=== PATIENT | male | born 1940 | race Caucasian/White ===

== ENCOUNTER 2017-05-02 13:45 | Inpatient (IN) ==
[2017-05-02] MEDS ORDERED: DILTIAZEM 50 MG/10 ML VIAL IV STA (14:13)
[2017-05-02] MEDS ORDERED: ENOXAPARIN 100 MG/ML SYRINGE SUBCUT STA (14:13)
--- NOTE | 2017-05-02 14:24 | Emergency Department Note ---
Paulino Polanco Brittany, am scribing for, and in the presence of, Zach Gilliam MD 14: 15. Tawana Polanco James D, MD, personally performed the services described in this documentation, ascribed by Margoth Bob in my presence, and it is both accurate and complete 424 . Arrival - Arrival Chief Complaint: Shortness of Breath Stated Complaint: chest pain, sob ED Nursing Triage Note: Sent from Dr Dominique office for new onset of a fib and SOB onset Saturday afternoon - pt denies chest pain Mode of Arrival: Wheelchair Limitations: No Limitations Source: Patient, Family - History of Present Illness HPI Narrative: This is a 76 y/o white male, who presents to the ED for further evaluation of acute A-fib and SOB whih started 4 days ago. He reports he has been SOB for the past. Pt denies chest pain. He denies pedal edema to the lower extremities, but upon examination, his BLE seems to be swollen mildly. He was being seen at Dr. Dominique's office for the SOB originally. Pt denies a PCP. Pt has no other complaints/pain in the ED at this time. Pt denies a PMHx. Pt denies a surgical Hx. Pt denies a family medical hx. Pt is a former smoker and quite drinking 8 years ago. Onset (ago): day(s) (Started 4 days ago) Consistency: constant Severity: moderate Allergies/Adverse Reactions: Allergies Allergy/AdvReac Type Severity Reaction Status Date / Time Penicillins Allergy RASH Verified 05/02/17 13:47 Home Medications: Home Medications Medication Instructions Recorded Confirmed Type Multivit-Min/FA/Lycopen/Lutein 1 each PO QAM 05/02/17 05/02/17 History [Centrum Silver Tablet] [place]-3/Dha/Epa/Fish Oil [Fish Oil 1 each PO QAM 05/02/17 05/02/17 History 1,000 mg Softgel] Potassium 99 mg PO QAM 05/02/17 05/02/17 History Review of System - Review of System 12 point system: reviewed and no additional remarkable complaints except as stated - Review of System Cardiovascular: Present: dyspnea on exertion, other (Acute onset of A-fib). Absent: chest pain Medical,Surgical,& Family Hx - Medical History Cardio: No history of: [place] - Social History Smoking Status: Never smoker Frequency of Alcohol Use: None Type of Drug Use: None Exam Vital Signs: Vital Signs Temperature 97.8 F 05/02/17 13:48 Pulse Rate 143 H 05/02/17 13:48 Respiratory Rate 20 05/02/17 13:48 O2 Sat by Pulse Oximetry 94 L 05/02/17 13:48 GENERAL: This is a well-nourished well-developed white male in no apparent distress. VITAL SIGNS: Reviewed HEENT: Head is atraumatic and normocephalic. Pupils are equal round react to light. Extraocular movements are intact. Oropharynx is benign with moist mucous membranes. NECK: Neck is soft and supple without tenderness. There are no masses. There is no lymphadenopathy. LUNGS: Lungs are clear to auscultation. Chest rises symmetrically. There is no chest wall tenderness. CV: Irregularly irregular with rapid rate without murmurs rubs or gallops. ABDOMEN: Abdomen is soft, nontender to palpation. There are no abdominal abnormal masses palpated. There is no organomegaly. Bowel sounds are present and active. SKIN: Skin is warm and dry. No rash. EXTREMITIES: Patient has full range of motion without tenderness. There is 1+ pedal edema. NEUROLOGIC: Awake alert and oriented 4. Cranial nerves II through XII are grossly intact. Motor is 5 over 5 in all extremities bilaterally. Deep tendon reflexes are 2+ and bilaterally equal. Results - Labs Lab Results: I have reviewed the patients labs - EKG EKG results: interpreted by ERMD - Impressions EKG: Atrial fib with RVR, rate 132, nonspecific ST-T wave changes, normal axis. - Diagnostic Findings Procedure: Chest x-ray: image reviewed by me Disposition Clinical Impression: Atrial fibrillation with RVR Case discussed with: patient Disposition: Still a Patient Condition: Stable Time of Disposition: 14:27
--- NOTE | 2017-05-02 14:33 | XRay Report ---
Exam: XR chest 1V portable Date: 05/02/2017 2:13 PM Indication: Shortness of breath Comparison: None Technical: AP portable Findings: Cardiomegaly present with oxygen tubing and external cardiac leads are present. Degenerative change present thoracic spine. The lung bases reveal some reticular nodular densities. Tiny low volume effusions present. Underlying cystic bronchiectasis change cannot be excluded. No pneumothorax Impression: 1. Cardiomegaly 2. Patchy interstitial densities in the lung bases bilaterally. Infiltrates or cystic bronchiectasis and effusion suspected. PROCEDURE INTERPRETED AT [facility] DEPARTMENT OF RADIOLOGY Final Report Signed by: Dr. Pop Rose
[2017-05-02 14:43] LABS: Basophils % 0.4 % (0.0-0.8); Eosinophils % 0.1 % (0.00-10.9); Hematocrit 40.2 VOL% (42.0-52.0); Hemoglobin 13.9 GM/DL (14.0-18.0); Immature Granulocytes % 0.4 %; Immature Granulocytes Absolute 0.03 #; Lymphocytes # 0.8 10*3/uL (1.4-4.0); Lymphocytes % 9.5 % (21.2-54.2); Mean Corpuscular HGB Conc 34.6 GM/DL (32-36); Mean Corpuscular Hemoglobin 29 PG (27-34); Mean Corpuscular Volume 82.9 FL (87-102); Mean Platelet Volume 9.4 FL (9.6-12.0); Monocytes # 0.8 10*3/uL (0.11-0.8); Monocytes % 9.6 % (1.7-12.7); Neutrophils # 6.4 10*3/uL (1.4-7.4); Platelet Count 258 T/CUMM (130-400); Red Blood Count 4.85 MC/CUMM (3.8-5.5); Red Cell Distribution Width 13.5 % (9.3-17.3)
--- NOTE | 2017-05-02 14:45 | EKG Report ---
Stationary ECG Study [facility] ER Test Date: 05/02/2017 1:56:43 PM Pat Name: ALFA HERNANDES Department: Room: Gender: M Hemodialysis Lab Technician: Gm Chaudhari : 1940 Requested by: Zach Queen Order Number: [id number] Reading MD: LILLIAM CHUA Intervals [place] Rate: 132 P: 999 TX: 0 QRS: 83 QRSD: 108 T: 78 QT: 310 QTc: 388 Interpretive Statements ATRIAL FIBRILLATION WITH RAPID VENTRICULAR RESPONSE NONSPECIFIC T WAVE ABNORMALITY Electronically Signed On 05-03-17 15:25:48 CDT by LILLIAM CHUA [email or web address]
[2017-05-02 15:01] LABS: Free T4 (Free Thyroxine) 1.21 NG/DL (0.76-1.46)
[2017-05-02 15:09] LABS: Alanine Aminotransferase 39 U/L (16-61); Albumin 3.8 G/DL (3.4-5.0); Alkaline Phosphatase 69 U/L (45-117); Aspartate Amino Transferase 26 U/L (0-37); Blood Urea Nitrogen 10 MG/DL (7-18); Calcium 9.1 MG/DL (8.5-10.1); Glucose 125 MG/DL (74-106); Osmolality,Calculated 263.5 MOS/KG (273-304); Potassium 4.5 MMOL/L (3.5-5.1); Sodium 132 MMOL/L (136-145); Total Protein 7.2 G/DL (6.4-8.3); Troponin I Only < 0.015 NG/ML (0.00-0.045)
[2017-05-02] MEDS: DILTIAZEM INJ 100 MG in SODIUM CHLORIDE 0.9% 100 ML IV SCH (15:09)
[2017-05-02] MEDS ORDERED: ONDANSETRON 4 MG/2 ML VIAL IV PRN (16:35)
[2017-05-02] MEDS ORDERED: ACETAMINOPHEN 325 MG TABLET PO PRN (16:35)
[2017-05-02] MEDS ORDERED: ENOXAPARIN 40 MG/0.4 ML SYRINGE SUBCUT SCH (17:00)
[2017-05-02] MEDS: SODIUM CHLORIDE 0.9% 1,000 ML IV SCH (17:13)
[2017-05-02 20:07] LABS: Osmolality,Calculated 265.5 MOS/KG (273-304); Potassium 4.2 MMOL/L (3.5-5.1)
[2017-05-02] MEDS: CLORAZEPATE 7.5 MG TABLET PO SCH (20:57)
[2017-05-02] MEDS: ZALEPLON 5 MG CAPSULE PO SCH (20:57)
[2017-05-02] MEDS: DOCUSATE SODIUM 100 MG CAPSULE PO SCH (20:57)
[2017-05-03] MEDS: DILTIAZEM INJ 100 MG in SODIUM CHLORIDE 0.9% 100 ML IV SCH ×2 (05:00→10:30)
--- NOTE | 2017-05-03 06:38 | Family Practice History&Phys ---
Assessment and Plan (1) Shortness of breath Status: Acute Assessment and plan: O2 prn and monitor Oxygen Sats Current Visit: Yes (2) Bilateral lower extremity edema Status: Acute Assessment and plan: Monitor vital I/O Current Visit: Yes (3) Atrial fibrillation with RVR Status: Acute Assessment and plan: Admit Monitor Dilatizem , Lovenox consult Cardiology Current Visit: Yes History of Present Illness Chief complaint: sob weakness afib rvr History of present illness: Mr. Quiroz is a 76 year old male that presented to my walk in clinic as a new patient with complaints of bloating and weakness and SOB. He denied any chest pain. He stated that his symptoms started on Saturday of this week, which is four days prior to office visit. Patient stated that he normally plays golf three times a week and has not been able to play at all this week. His stated "he is just not himself." On exam patient was noted to be in afib with RVR with SOB and he was then sent to the emergency room for evaluation and possible admission. As stated earlier patient is new to me and he states that he has no cardiac history "no cath, no treadmill." His home meds at this time are vitamins, fish oil and OTC Potassium. Patient denies any PMHX,denies SX HX, and denies Family HX of heart disease, but state HTN in Family Hx.. He is a former smoker but states that he quit smoking over 8 years ago. Patient admitted with Afib RVR was 132 in ER, Cardiology consulted Diltiazem adn Lovenox started. Appreciate Cardiology assistance on this case. Home Medications Medication Instructions Recorded Confirmed Type Multivit-Min/FA/Lycopen/Lutein 1 each PO QAM 05/02/17 05/02/17 History [Centrum Silver Tablet] [place]-3/Dha/Epa/Fish Oil [Fish Oil 1 each PO QAM 05/02/17 05/02/17 History 1,000 mg Softgel] Potassium 99 mg PO QAM 05/02/17 05/02/17 History Allergies Allergy/AdvReac Type Severity Reaction Status Date / Time Penicillins Allergy RASH Verified 05/02/17 13:47 Medical,Surgical,& Family Hx - Medical History Cardio: No history of: [place] - Family History Family History: Reports;: Family Heart Disease, Family Hypertension - Social History Smoking Status: Never smoker Frequency of Alcohol Use: None Type of Drug Use: None Exam - Constitutional Vitals: Period Temp Pulse Resp BP Sys/[place] Pulse Ox Last 24 Hr 97 F-97.8 F 88-143 16-20 134-162/68-117 90-99 Exam: GENERAL: This is a well-nourished well-developed white male in no apparent distress. HEENT: Head is atraumatic and normocephalic. Pupils are equal round react to light. Extraocular movements are intact. Oropharynx is benign with moist mucous membranes. NECK: Neck is soft and supple without tenderness. There are no masses. There is no lymphadenopathy. LUNGS: Lungs are clear to auscultation. There is no chest wall tenderness. CV: Irregularly irregular with rapid rate without murmurs rubs or gallops. ABDOMEN: Abdomen is soft, nontender to palpation. There are no abdominal abnormal masses palpated. Bowel sounds are present and active. EXTREMITIES: Patient has full range of motion without tenderness. There is 1+ pedal edema. NEUROLOGIC: Awake alert and oriented 4. Cranial nerves II through XII are grossly intact. Motor is 5 over 5 in all extremities bilaterally. Deep tendon reflexes are 2+ and bilaterally equal. Results - Labs CBC & BMP: 05/02/17 14:31 05/02/17 19:33
[2017-05-03] MEDS: CLORAZEPATE 7.5 MG TABLET PO SCH ×2 (10:12→21:39)
[2017-05-03] MEDS: DOCUSATE SODIUM 100 MG CAPSULE PO SCH ×2 (10:13→21:38)
[2017-05-03] MEDS: guaiFENesin/DM ER 600-30 MG TABLET PO PRN ×2 (10:31→21:39)
[2017-05-03] MEDS: SODIUM CHLORIDE 0.9% 1,000 ML IV SCH (11:17)
[2017-05-03] MEDS: ALBUTEROL/IPRATROPIUM 3 ML NEB RESP TX PRN ×3 (11:40→21:16)
[2017-05-03] MEDS: PANTOPRAZOLE 40 MG TABLET PO SCH (12:35)
--- NOTE | 2017-05-03 13:40 | Family Practice Progress Note ---
Family Practice - PN: Subj Interval history: Patient seen this morning. He is alert, but does. Be somewhat anxious. Heart is irregular rate approximately 100. Cardiac exam infusing at this time. Is not having any chest pain, but he is short of breath especially when he talks. Seems get out of breath fairly easily. No fever chills nausea vomiting or diarrhea. Is not having any leg pain. Vital signs are stable except for slight elevation of blood pressure. We'll continue to monitor closely. Appreciate cardiology services on this case. I did order an echocardiogram Exam (Progress Note) - Constitutional Vitals: Period Temp Pulse Resp BP Sys/[place] Pulse Ox Last 24 Hr 97 F-98.4 F 83-143 16-24 134-162/68-117 89-99 Exam: GENERAL: This is a well-nourished well-developed white male in no apparent distress. HEENT: Head is atraumatic and normocephalic. Pupils are equal round react to light. NECK: Neck is soft and supple without tenderness. There are no masses. LUNGS: Lungs are clear to auscultation. There is no chest wall tenderness. CV: Irregularly irregular with rapid rate without murmurs rubs or gallops. ABDOMEN: Abdomen is soft, nontender to palpation. There are no abdominal EXTREMITIES: Patient has full range of motion without tenderness. There is 1+ pedal edema. NEUROLOGIC: Awake alert and oriented 4. Cranial nerves II through XII are grossly intact. No lateralizing findings Results - Labs CBC & BMP: 05/02/17 14:31 05/02/17 19:33 Assessment and Plan (1) Shortness of breath Status: Acute Assessment and plan: O2 prn and monitor Oxygen Sats 05/03/17. Patient is on oxygen and this is working well. When he starts talking he gets a little bit tachypneic Current Visit: Yes (2) Bilateral lower extremity edema Status: Acute Assessment and plan: Monitor vital I/O . 616's 17: Edema is much improved at this time Current Visit: Yes (3) Atrial fibrillation with RVR Status: Acute Assessment and plan: Admit Monitor Dilatizem , Lovenox consult Cardiology . 05/03/17: Continues in atrial fibrillation but the rate is controlled at this time. Patient not having any chest pain Current Visit: Yes
[2017-05-03] MEDS ORDERED: METOPROLOL SUCCINATE XL 50 MG TABLET PO ONE (13:54)
--- NOTE | 2017-05-03 13:54 | ECHO Report ---
Sloan Quiroz 05/03/2017 Exam Date: 10:26 Referring Physician: amos Herrera Technologist: PAWAN JAFFE Age: 76 Ht (in): 71 Wt (lb): 231 MExam [facility] Gender: Echo [id number]: Atrial fibrillation, LE edema, ShorIndications:tness of breath BP: 158 / 93 HR: 83 Atrial fibrillationRhythm: Technical Quality: IMPRESSIONS Technically adequate study 1-2+ left atrial enlargement; 1+ left ventricular enlargement Mildly reduced LV systolic function with ejection fraction estimated 40% without obvious segmental wall motion abnormality Approximately 2+ mitral and tricuspid regurgitation with RVSP 37 mmHg plus RAP MEASUREMENTS (Male / Female) Normal Values 2D ECHO LV Diastolic Diameter PLAX 6.1 cm 4.2 - 5.9 / 3.9 - 5.3 cm LV Systolic Diameter PLAX 4.6 cm LV Fractional Shortening PLAX 23.4 % IVS Diastolic Thickness 1.0 cm 0.6 - 1.0 / 0.6 - 0.9 cm LVPW Diastolic Thickness 1.0 cm 0.6 - 1.0 / 0.6 - 0.9 cm RV Internal Dim ED PLAX 4.4 cm Aortic Root Diameter 3.9 cm LA Systolic Diameter LX 4.7 cm 3.0 - 4.0 / 2.7 - 3.8 cm DOPPLER TR Peak Velocity 304.0 cm/s TR Peak Gradient 37.0 mmHg FINDINGS Left Ventricle Moderately increased left ventricular cavity size. Normal left ventricular wall thickness. Left ventricular ejection fraction is estimated at %. Right Ventricle Mildly increased right ventricular size. Right Atrium Moderately increased right atrial size. Left Atrium Moderately increased left atrial size. Mitral Valve Morphologically normal mitral valve. Trace to mild mitral valve regurgitation. Aortic Valve Morphologically normal aortic valve without significant sclerosis or stenosis. There is no aortic regurgitation. Tricuspid Valve Morphologically normal tricuspid valve. Mild tricuspid valve regurgitation. Tricuspid regurgitation velocities suggest a PAP of 47 mmHg. Pulmonic Valve Morphologically normal pulmonic valve. Mild pulmonary valve regurgitation. Pericardium Normal pericardium without effusion. Aorta Normal ascending aorta dimension. Rg Mayfield (Electronically Signed) 03 May 2017 Final Date: 13:53
--- NOTE | 2017-05-03 14:53 | Cardiology Consult Note ---
I, Lorraine Love RN, am scribing for, and in the presence of, Rg Mayfield MD 14:50. Assessment and Plan - Time spent with patient Time spent with patient: Greater than 30 minutes (Due to assessment, planning, documentation, medication review) (1) Atrial fibrillation with RVR Status: Acute Assessment and plan: 1. 76-year-old overweight white male who reports having increased dyspnea on exertion for the last couple weeks he was incidentally found to have atrial fibrillation with RVR "I just came to Dr. Dominique's for some sleeping pills" 2. 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 3. Mild hyperglycemia noted 2 with no history of diabetes or family history 4. Starting Toprol for rate control so we can get him off his IV diltiazem infusion 5. Give Lasix now and daily 6. Add Eliquis now to reduce his cardioembolic risk Current Visit: Yes (2) Shortness of breath Status: Acute Current Visit: Yes History of Present Illness - Data of Consult Patient: new to practice Consult date: 05/02/17 Requesting Physician: Chacorta Dominique Primary care physician: Chacorta Dominique - Consult Narrative Reason for consult: A. 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 Dominique Mr. Quiroz is a 76 year old male who has never seen a maintenance engineer in the past and denies ever having had a stress test or heart cath. He denies any health problems and does not take any home medications on a regular basis other than supplements. Surgical history includes bilateral cataract surgery. The chart has listed family history of heart disease and hypertension, but the patient states he is unaware of any of his family having any health issues. He does not smoke, reports he quit about 50 years ago. He reports on Saturday he began to feel bloated like he was having a "gas attack" . He denies any chest pain with this. He reports getting much short of breath after walking to his mailbox this week. He has had a cough and began taking cold medicine over the weekend. He is not sure what he is taking or if it has a decongestant in it. He also states that he drinks a lot of coffee. When asked how much he drinks, he states "a couple of pots". He reports the symptoms continued to yesterday he saw Dr. Dominique in the office for further evaluation. He was found to be in atrial fibrillation and was sent to the emergency department [facility] for further evaluation. EKG on admission showed atrial fibrillation with RVR, heart rate of 132. He was given Cardizem 10 mg IV 1 and started on a Cardizem infusion in the emergency department. He was also started on Lovenox. Labs were unremarkable. Chest x-ray showed interstitial densities in the lung bases bilaterally, infiltrates or cystic bronchiectasis and effusion suspected. Currently he is resting in bed in no acute distress. He tells me he only has dyspnea on exertion, but he is notably tachypneic during our conversation. Oxygen is in use via nasal cannula. Cardizem is infusing at 10 milliliters per hour, athletic monitor currently shows atrial fibrillation with heart rates in the 90s. He continues to deny any chest pain. He also denies any palpitations , he states he has not had any presently or anytime this week. He denies ever having had any issues with bleeding. Blood pressures been elevated some since admission, this morning it is 151/90. CC: Chacorta Dominique, DO - Home Medications and Allergies Home Medications: Home Medications Medication Instructions Recorded Confirmed Type Multivit-Min/FA/Lycopen/Lutein 1 each PO QAM 05/02/17 05/02/17 History [Centrum Silver Tablet] [place]-3/Dha/Epa/Fish Oil [Fish Oil 1 each PO QAM 05/02/17 05/02/17 History 1,000 mg Softgel] Potassium 99 mg PO QAM 05/02/17 05/02/17 History Allergies/Adverse Reactions: Allergies Allergy/AdvReac Type Severity Reaction Status Date / Time Penicillins Allergy RASH Verified 05/02/17 13:47 - Constitutional Constitutional: Present: as per HPI - EENT Eyes: Present: requires corrective lense. Absent: loss of vision Ears: Present: decreased hearing. Absent: ear pain, tinnitus Nose, mouth and throat: Absent: epistaxis, headache(s), hoarseness, neck pain, sore throat - Cardiovascular Cardiovascular: Present: dyspnea, dyspnea on exertion. Absent: chest pain at rest, chest pain with activity, diaphoresis, edema, radiating jaw, neck or arm pain, lightheadedness, orthopnea, palpitations - Respiratory Respiratory: Present: cough, dyspnea, dyspnea on exertion. Absent: hemoptysis, wheezing - Gastrointestinal Gastrointestinal: Present: nausea, vomiting. Absent: abdominal pain, constipation, diarrhea, hematemesis, hematochezia, melena - Genitourinary Genitourinary: Absent: dysuria, hematuria - Musculoskeletal Musculoskeletal: Present: limited range of motion, muscle weakness. Absent: back pain - Neurological Neurological: Absent: confusion, dizziness, frequent falls, headache(s), syncope - Psychiatric Psychiatric: Absent: confusion, depression - Endocrine Endocrine: Present: fatigue - Hematologic/Lymphatic Hematologic/Lymphatic: Absent: easy bleeding, easy bruising Medical,Surgical,& Family Hx - Medical History Medical History: noncontributory (He denies any medical history) - Surgical History HEENT Surgeries: Surgical HX of: Eye Surgery (Bilateral cataracts) - Family History Family History: noncontributory (He denies any known family history) - Social History Smoking Status: Former smoker (Ports he quit about 50 years ago) Have you smoked in the last 12 months: No Frequency of Alcohol Use: None Type of Drug Use: None Marital Status: Lives With:: Spouse Functional capacity: uses cane/walker Physical Examination Vital Signs Temp Pulse Resp BP Pulse Ox 97.8 F 143 H 20 160/102 94 L 05/02/17 13:48 05/02/17 13:48 05/02/17 13:48 05/02/17 13:48 05/02/17 13:48 General: Present: Appears Well, No Apparent Distress HEENT: Present: PERRL, Mucus Membranes Moist Neck: Present: Supple Neck, Midline Trachea, No Bruit Cardiac: Present: Irregularly Regular, Tachycardia Lungs: Present: Normal Breath Sounds, Oxygen (Via nasal cannula), No Wheeze, Rales, Rhonchi Neuro: Absent: Resting Tremor, Essential Tremor Abdomen: Present: Soft, Active Bowel Sounds, Non-Tender. Absent: Distended Skin: Absent: Rash, Suspicious Lesions Musculoskeletal: Present: Decreased Range of Motion, No Pain Extremities: Present: No Edema, Normal Upper Extr. Pulses, Normal Lower Extr. Pulses Result/EKG - Labs CBC & BMP: 05/02/17 14:31 05/02/17 19:33 Lab Results: I have reviewed the past 24 hour labs Labs: Laboratory Results - last 24 hr 05/02/17 05/02/17 05/02/17 14:31 14:31 14:31 WBC 8.0 RBC 4.85 Hgb 13.9 L Hct 40.2 L MCV 82.9 L MCH 29 MCHC 34.6 RDW 13.5 Plt Count 258 MPV 9.4 L Neut % (Auto) 80.0 H Lymph % (Auto) 9.5 L [place] % (Auto) 9.6 Eos % (Auto) 0.1 Baso % (Auto) 0.4 Neut # (Auto) 6.4 Lymph # (Auto) 0.8 L [place] # (Auto) 0.8 Eos # (Auto) 0.0 Baso # (Auto) 0.0 Immature Gran % 0.4 Nucleated RBC % 0.0 Immature Gran # 0.03 Nucleated RBCs # 0.00 INR 1.0 PT Patient/Control Mix 11.0 D-Dimer, Quantitative Circ Anticoag PTT 31.0 Sodium Potassium Chloride Carbon Dioxide Anion Gap BUN Creatinine GFR Calculation BUN/Creatinine Ratio Glucose Calculated Osmolality Calcium Magnesium 2.0 Total Bilirubin AST ALT Alkaline Phosphatase Troponin I Total Protein Albumin Globulin Albumin/Globulin Ratio Free T4 1.21 TSH 3rd Generation 05/02/17 05/02/17 05/02/17 14:31 19:33 19:33 WBC RBC Hgb Hct MCV MCH MCHC RDW Plt Count MPV Neut % (Auto) Lymph % (Auto) [place] % (Auto) Eos % (Auto) Baso % (Auto) Neut # (Auto) Lymph # (Auto) [place] # (Auto) Eos # (Auto) Baso # (Auto) Immature Gran % Nucleated RBC % Immature Gran # Nucleated RBCs # INR PT Patient/Control Mix D-Dimer, Quantitative 1.0 Circ Anticoag PTT Sodium 132 L 132 L Potassium 4.5 4.2 Chloride 96 L 94 L Carbon Dioxide 27 28 Anion Gap 13.5 14.2 BUN 10 10 Creatinine 0.60 L 0.60 L GFR Calculation 124 125 BUN/Creatinine Ratio 16.00 16.00 Glucose 125 H 155 H Calculated Osmolality 263.5 L 265.5 L Calcium 9.1 9.0 Magnesium Total Bilirubin 1.10 H AST 26 ALT 39 Alkaline Phosphatase 69 Troponin I < 0.015 Total Protein 7.2 Albumin 3.8 Globulin 3.4 Albumin/Globulin Ratio 1.1 Free T4 TSH 3rd Generation 1.910 - Diagnostic Findings Procedure: Chest x-ray: report reviewed by me - EKG EKG results: interpreted by me EKG shows: atrial fibrillation Tran Polanco Randall Scott, MD, personally performed the services described in this documentation, ascribed by Lorraine Love RN in my presence, and it is both accurate and complete 453 .
[2017-05-03] MEDS: FUROSEMIDE 40 MG/4 ML VIAL IV SCH (15:55)
[2017-05-03] MEDS: APIXABAN 5 MG TABLET PO SCH ×2 (15:57→21:38)
[2017-05-03] MEDS: METOPROLOL SUCCINATE XL 25 MG TABLET PO SCH (21:38)
[2017-05-03] MEDS: LISINOPRIL 5 MG TABLET PO SCH (21:38)
[2017-05-03] MEDS: ZALEPLON 5 MG CAPSULE PO SCH (21:38)
[2017-05-04 05:00] LABS: Basophils % 0.1 % (0.0-0.8); Eosinophils % 0.1 % (0.00-10.9); Hematocrit 39.7 VOL% (42.0-52.0); Hemoglobin 13.1 GM/DL (14.0-18.0); Immature Granulocytes % 0.4 %; Immature Granulocytes Absolute 0.06 #; Lymphocytes # 0.4 10*3/uL (1.4-4.0); Lymphocytes % 3.1 % (21.2-54.2); Mean Corpuscular Hemoglobin 29 PG (27-34); Mean Corpuscular Volume 86.7 FL (87-102); Mean Platelet Volume 9.5 FL (9.6-12.0); Monocytes # 1.3 10*3/uL (0.11-0.8); Monocytes % 9.9 % (1.7-12.7); Neutrophils # 11.5 10*3/uL (1.4-7.4); Neutrophils % 86.4 % (38.7-73.9); Platelet Count 265 T/CUMM (130-400); Red Blood Count 4.58 MC/CUMM (3.8-5.5); Red Cell Distribution Width 13.9 % (9.3-17.3); White Blood Count 13.4 T/CUMM (4-12)
[2017-05-04 05:28] LABS: Osmolality,Calculated 262.7 MOS/KG (273-304); Potassium 4.9 MMOL/L (3.5-5.1)
[2017-05-04 05:54] LABS: Lymphocytes 4 % (20-55); Segmented Neutrophils 87 % (50-85); Total Cells Counted 100
[2017-05-04 05:55] LABS: Hypochromasia Slight; Microcytosis 1+; Ovalocytes Few
[2017-05-04 05:56] LABS: Platelet Estimate Normal
[2017-05-04] MEDS ORDERED: methylPREDNISolone SOD SUC 125 MG/2 ML VIAL IV ONE (08:25)
[2017-05-04] MEDS: PANTOPRAZOLE 40 MG TABLET PO SCH (09:00)
--- NOTE | 2017-05-04 09:39 | XRay Report ---
XR chest 2V Indication: Worsening shortness of breath. Chest 2 views: Comparison 05/02/2017. As with prior examination, hazy obscuration of both lung bases is present and probably slightly worse bilaterally. Miniscule pleural effusions are present bilaterally as well. Borderline cardiomegaly and normal mediastinal contour are stable. Impression: Slightly worsened bibasilar atelectasis or pneumonia. Trace pleural effusions. PROCEDURE INTERPRETED AT [facility] DEPARTMENT OF RADIOLOGY Final Report Signed by: Bao Vera M.D.
[2017-05-04] MEDS: guaiFENesin/DM ER 600-30 MG TABLET PO PRN (09:49)
[2017-05-04] MEDS: METOPROLOL SUCCINATE XL 25 MG TABLET PO SCH (09:49)
[2017-05-04] MEDS: LISINOPRIL 5 MG TABLET PO SCH (09:49)
[2017-05-04] MEDS: CLORAZEPATE 7.5 MG TABLET PO SCH ×2 (09:49→21:48)
[2017-05-04] MEDS: FUROSEMIDE 40 MG/4 ML VIAL IV SCH ×2 (09:50→16:17)
[2017-05-04] MEDS: DOCUSATE SODIUM 100 MG CAPSULE PO SCH ×2 (09:50→21:48)
[2017-05-04] MEDS: APIXABAN 5 MG TABLET PO SCH ×2 (09:50→21:48)
[2017-05-04] MEDS: ALBUTEROL/IPRATROPIUM 3 ML NEB RESP TX PRN (10:40)
[2017-05-04] MEDS: LEVOFLOXACIN INJ 500 MG in PREMIX 1 EACH IV SCH (10:54)
[2017-05-04] MEDS ORDERED: ALBUTEROL/IPRATROPIUM 3 ML NEB RESP TX ONE (10:55)
[2017-05-04] MEDS ORDERED: FUROSEMIDE 20 MG/2 ML VIAL IV ONE (11:00)
[2017-05-04 11:18] LABS: ABG Base Excess 0.3 MMOL/L (-2.5-2.5); ABG HCO3 24.5 MMOL/L (20-26); ABG Oxygen Saturation 89.7 % (95-100); ABG PH 7.226 (7.35-7.45); ABG PO2 65.2 MM HG (80-95); ABG TCO2 27.5 MMOL/L (23-27)
[2017-05-04 11:20] LABS: ABG PCO2 74.4 MM HG (35-48)
--- NOTE | 2017-05-04 11:29 | Pulmonology Consult Note ---
Assessment and Plan - Time spent with patient Time spent with patient: Greater than 30 minutes (1) Respiratory distress Status: Acute Assessment and plan: 76-year-old male admitted with new finding of A. fib with RVR now in acute respiratory distress with hypercapnia and hypoxia. Etiology is likely related to volume overload in setting of slightly depressed EF and rapid heart rate in addition to possibility of right lower lobe pneumonia given his complaint of coughing up yellow-green sputum for the past few days. Recommend initiating noninvasive ventilation, antibiotics, breathing treatments, and steroids. Additionally continue with diuresis and heart rate control per cardiology. If patient continues to decline, he would be amenable to intubation and mechanical ventilation as well as ACLS measures. Recommendations: -BiPAP 8/4, FiO2 40% -ABG 1 hour after starting BiPAP -If ABG not improved in 1 hour or if there is worsening respiratory distress, will consider intubation -Solu-Medrol -Antibiotics -Bronchodilators -Lasix with goal > 1 L net negative for the day -Heart rate control per cardiology Current Visit: Yes (2) Acute respiratory acidosis Status: Acute Assessment and plan: ABG performed for my evaluation showed significant respiratory acidosis. Will initiate BiPAP and recheck in 1 hour. If no improvement or if interval worsening, patient may require intubation. Treat other causes of respiratory distress as above. Current Visit: Yes (3) Atrial fibrillation with RVR Status: Acute Assessment and plan: New finding; cardiology following. Current Visit: Yes History of Present Illness Chief complaint: Respiratory distress History of present illness: Mr. Quiroz is a 77 year old male admitted 05/02/17 for fatigue/weakness and shortness of breath. Since admission patient has been found to have atrial fibrillation with RVR and has been receiving treatment in consultation with cardiology for this. This morning, patient was noted to have increasing respiratory difficulties, prompting pulmonary consultation. Reportedly patient began having labored breathing this morning for which he was given Solu-Medrol, Levaquin, and duo nebs 2. With this therapy there has been marginal improvement in his respiratory status. Additional evaluation has included a chest x-ray showing bibasilar atelectasis and pleural effusions. ABG obtained at the time of my evaluation showed significant respiratory acidosis. Patient denies a history of prior episodes of respiratory distress. He has no known history of COPD but does admit to a small smoking history ([id number]). Home Medications Medication Instructions Recorded Confirmed Type Multivit-Min/FA/Lycopen/Lutein 1 each PO QAM 05/02/17 05/02/17 History [Centrum Silver Tablet] [place]-3/Dha/Epa/Fish Oil [Fish Oil 1 each PO QAM 05/02/17 05/02/17 History 1,000 mg Softgel] Potassium 99 mg PO QAM 05/02/17 05/02/17 History Allergies Allergy/AdvReac Type Severity Reaction Status Date / Time Penicillins Allergy RASH Verified 05/02/17 13:47 - Constitutional Constitutional: Present: as per HPI Exam (Pulmonay) H&P - Constitutional Vitals: Period Temp Pulse Resp BP Sys/Smallwood Pulse Ox Last 24 Hr 97.1 F-98.9 F 52-105 17-24 121-144/70-92 90-97 General appearance: over weight - Head Head exam: Present: normal inspection, normocephalic - Eye Eye exam: Present: EOMI Pupils: Present: RAYNA - Neck Neck exam: Present: normal inspection - Respiratory Respiratory exam: Present: accessory muscle use, decreased breath sounds, rales , wheezes - Cardiovascular Cardiovascular exam: Present: irregular rhythm - GI/Abdominal GI/Abdominal exam: Present: normal bowel sounds - Extremities Exam Extremities exam: Present: edema - Neurological Exam Neurological exam: Present: alert, oriented X3 Medical,Surgical,& Family Hx - Medical History Cardio: No history of: MD - Surgical History HEENT Surgeries: Surgical HX of: Eye Surgery (Bilateral cataracts) - Family History Family History: Reports;: Family Heart Disease, Family Hypertension - Social History Smoking Status: Former smoker (Ports he quit about 50 years ago) Frequency of Alcohol Use: None Type of Drug Use: None Results - Labs CBC & BMP: 05/04/17 03:48 05/04/17 03:48 - Diagnostic Findings Procedure: Chest x-ray: report reviewed by me, image reviewed by me (bibasilar atelectasis, bilateral small effusions)
--- NOTE | 2017-05-04 12:03 | Family Practice Progress Note ---
Family Practice - PN: Subj Interval history: Patient seen this morning and was doing fairly well. He was minimally tachypneic at the time with a rate of about 24 to 25, and sitting in chair. In the interval. I have been called in they stated his breathing and increased more and that he was becoming more short of breath. We initiated some Solu- Medrol, breathing treatments, Lasix and when he got some ABGs and checked a d- dimer.. Got all pulmonary consult was seen at this time hopefully he will turn around. If not we might have to intubate him. Appreciate pulmonary consult on this pleasant patient who is in the hospital with atrial fibrillation with now rate controlled Exam (Progress Note) - Constitutional Vitals: Period Temp Pulse Resp BP Sys/Smallwood Pulse Ox Last 24 Hr 97.1 F-98.9 F 71-105 18-24 121-144/70-92 90-97 Exam: GENERAL: This is a well-nourished well-developed white male in some mild respiratory distress HEENT: . Pupils are equal round react to light. NECK: Neck is soft and supple without tenderness. There are no masses. LUNGS: Lungs with some wheezing and positive rales. Only periodic cough CV: Irregularly irregular with rapid rate without murmurs rubs or gallops. ABDOMEN: Abdomen is soft, nontender to palpation. There are no abdominal EXTREMITIES: Patient has full range of motion without tenderness. There is 1+ pedal edema. NEUROLOGIC: Awake alert and oriented 4. Cranial nerves II through XII are grossly intact. No lateralizing findings Results - Labs CBC & BMP: 05/04/17 03:48 05/04/17 03:48 Assessment and Plan (1) Shortness of breath Status: Acute Assessment and plan: O2 prn and monitor Oxygen Sats 05/03/17. Patient is on oxygen and this is working well. When he starts talking he gets a little bit tachypneic 05/04/2017: The patient is working a little bit harder for breathing and also is tachypneic. We are going to initiate the above and get pulmonary involved. His atrial fibrillation rate has decreased Current Visit: Yes (2) Bilateral lower extremity edema Status: Acute Assessment and plan: Monitor vital I/O . 616's 17: Edema is much improved at this time Current Visit: Yes (3) Atrial fibrillation with RVR Status: Acute Assessment and plan: Admit Monitor Georgiana Delacruz consult Cardiology . 05/03/17: Continues in atrial fibrillation but the rate is controlled at this time. Patient not having any chest pain Current Visit: Yes
--- NOTE | 2017-05-04 12:33 | Cardiology Progress Note ---
Assessment and Plan (1) Atrial fibrillation with RVR Status: Acute Assessment and plan: 1. 76-year-old overweight white male who reports having increased dyspnea on exertion for the last couple weeks he was incidentally found to have atrial fibrillation with RVR "I just came to Dr. Dominique's for some sleeping pills" 2. 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 3. Mild hyperglycemia noted 2 with no history of diabetes or family history 4. Starting Toprol for rate control so we can get him off his IV diltiazem infusion 5. Give Lasix now and daily 6. Add Eliquis now to reduce his cardioembolic risk May 04, 2017: 1. Mr. Quiroz is clearly worse today with severe dyspnea on exertion and appeared to have severe wheezing 2. 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 3. Given his cross gases/hypercapnia seems to have COPD exacerbation and possible pneumonia; he seems to be responding to BiPAP currently 4. Discontinue all beta-eli and will use diltiazem infusion for rate control 5. Check EKG; he denies chest discomfort and initial troponin was negative. 6. Change low-dose LOUANN inhibitor to ARB in the unlikely chance he has reaction to LOUANN inhibitor. Current Visit: Yes (2) Shortness of breath Status: Acute Current Visit: Yes Cardiology - PN: Subj Interval history: Mr. Quiroz became gradually and significant more short of breath this morning, and pulmonary was consulted and he has CO2 retention with PO2 in the 60s now on BiPAP. He has not had any chest discomfort. He his BNP was elevated this morning. He has continued atrial fibrillation, with modest RVR. Exam (Progress Note) - Constitutional Vitals: Period Temp Pulse Resp BP Sys/[place]wood Pulse Ox Last 24 Hr 97.1 F-98.9 F 71-118 18-24 121-144/70-102 90-97 General appearance: mild distress, over weight - Head Head exam: Present: normal inspection, normocephalic, atraumatic - Respiratory Respiratory exam: Present: decreased breath sounds. Absent: rhonchi, stridor - Cardiovascular Cardiovascular exam: Absent: diastolic murmur, rubs, systolic murmur - GI/Abdominal GI/Abdominal exam: Present: soft. Absent: tenderness - Extremities Exam Extremities exam: Absent: edema - Neurological Exam Neurological exam: Present: alert, oriented X3 Result/EKG - Labs CBC & BMP: 05/04/17 03:48 05/04/17 03:48 Labs: Laboratory Results - last 24 hr 05/04/17 05/04/17 05/04/17 03:48 03:48 10:19 WBC 13.4 H D RBC 4.58 Hgb 13.1 L Hct 39.7 L MCV 86.7 L MCH 29 MCHC 33.0 RDW 13.9 Plt Count 265 MPV 9.5 L Neut % (Auto) 86.4 H Lymph % (Auto) 3.1 L Dickson % (Auto) 9.9 Eos % (Auto) 0.1 Baso % (Auto) 0.1 Neut # (Auto) 11.5 H Lymph # (Auto) 0.4 L Dickson # (Auto) 1.3 H Eos # (Auto) 0.0 Baso # (Auto) 0.0 Total Counted 100 Immature Gran % 0.4 Nucleated RBC % 0.0 Immature Gran # 0.06 Segmented Neutrophils 87 H Lymphocytes 4 L Monocytes 8 Basophils 1.0 H Nucleated RBCs # 0.00 Platelet Estimate Normal Hypochromasia Slight Microcytosis 1+ Ovalocytes Few D-Dimer, Quantitative ABG pH ABG pCO2 ABG pO2 ABG HCO3 ABG Total CO2 ABG O2 Saturation ABG Base Excess Sodium 131 L Potassium 4.9 Chloride 94 L Carbon Dioxide 28 Anion Gap 13.9 BUN 16 Creatinine 0.70 GFR Calculation 116 BUN/Creatinine Ratio 22.00 H Glucose 95 Calculated Osmolality 262.7 L Calcium 9.0 Magnesium 2.0 B-Natriuretic Peptide 568 H 05/04/17 05/04/17 10:28 11:19 WBC RBC Hgb Hct MCV MCH MCHC RDW Plt Count MPV Neut % (Auto) Lymph % (Auto) Dickson % (Auto) Eos % (Auto) Baso % (Auto) Neut # (Auto) Lymph # (Auto) Dickson # (Auto) Eos # (Auto) Baso # (Auto) Total Counted Immature Gran % Nucleated RBC % Immature Gran # Segmented Neutrophils Lymphocytes Monocytes Basophils Nucleated RBCs # Platelet Estimate Hypochromasia Microcytosis Ovalocytes D-Dimer, Quantitative 0.6 ABG pH 7.226 L ABG pCO2 74.4 H* ABG pO2 65.2 L ABG HCO3 24.5 ABG Total CO2 27.5 H ABG O2 Saturation 89.7 L ABG Base Excess 0.3 Sodium Potassium Chloride Carbon Dioxide Anion Gap BUN Creatinine GFR Calculation BUN/Creatinine Ratio Glucose Calculated Osmolality Calcium Magnesium B-Natriuretic Peptide
--- NOTE | 2017-05-04 12:36 | EKG Report ---
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
[2017-05-04 12:57] LABS: ABG Base Excess 1.3 MMOL/L (-2.5-2.5); ABG HCO3 25.4 MMOL/L (20-26); ABG Oxygen Saturation 92.7 % (95-100); ABG PH 7.245 (7.35-7.45); ABG PO2 72.8 MM HG (80-95)
[2017-05-04 12:59] LABS: ABG PCO2 72.2 MM HG (35-48)
[2017-05-04] MEDS ORDERED: ALBUTEROL/IPRATROPIUM 3 ML NEB RESP TX SCH (13:00)
[2017-05-04 14:50] LABS: ABG Base Excess 2.9 MMOL/L (-2.5-2.5); ABG HCO3 31.8 MMOL/L (20-26); ABG Oxygen Saturation 93.7 % (95-100); ABG PH 7.277 (7.35-7.45); ABG PO2 72.1 MM HG (80-95); ABG TCO2 33.9 MMOL/L (23-27)
[2017-05-04 14:53] LABS: ABG PCO2 69.6 MM HG (35-48)
[2017-05-04] MEDS: methylPREDNISolone SOD SUC 40 MG/1 ML VIAL IV SCH (16:19)
[2017-05-04 17:47] LABS: ABG Base Excess 3.8 MMOL/L (-2.5-2.5); ABG HCO3 32.2 MMOL/L (20-26); ABG Oxygen Saturation 94.5 % (95-100); ABG PCO2 66.6 MM HG (35-48); ABG PH 7.302 (7.35-7.45); ABG PO2 70.5 MM HG (80-95); ABG TCO2 34.2 MMOL/L (23-27)
[2017-05-04] MEDS ORDERED: IPRATROPIUM 500 MCG/2.5 ML NEB RESP TX ONE (17:55)
[2017-05-04] MEDS ORDERED: ALBUTEROL 2.5 MG/3 ML NEB RESP TX ONE (17:56)
--- NOTE | 2017-05-04 17:59 | Ultrasound Report ---
US venous doppler LE BI Indication: Shortness of breath. BILATERAL LOWER EXTREMITY VENOUS ULTRASOUND Comparison: None Findings: Graded grayscale compression, color Doppler and pulsed Doppler ultrasound evaluation of the venous structures performed. Normal compressibility, augmentation and color saturation is present within bilateral common femoral, superficial femoral, popliteal and proximal greater saphenous veins. Impression: No evidence of DVT either lower extremity. PROCEDURE INTERPRETED AT [facility] DEPARTMENT OF RADIOLOGY Final Report Signed by: Bao Vera M.D.
--- NOTE | 2017-05-04 18:06 | XRay Report ---
XR chest 1V portable Indication: Shortness of breath. Chest one view: Comparison 0843 hours shows worsening hazy obscuration of both lung bases with decreased lung volumes throughout. Mild cardiomegaly and prominent hilar structures is again shown. Impression: Continued evidence of CHF with worsening bibasilar atelectasis or pneumonia. PROCEDURE INTERPRETED AT [facility] DEPARTMENT OF RADIOLOGY Final Report Signed by: Bao Vera M.D.
[2017-05-04] MEDS ORDERED: ALBUTEROL 2.5 MG/3 ML NEB RESP TX SCH (19:00)
[2017-05-04] MEDS ORDERED: IPRATROPIUM 500 MCG/2.5 ML NEB RESP TX SCH (19:00)
[2017-05-04] MEDS: IPRATROPIUM 500 MCG/2.5 ML NEB RESP TX SCH ×2 (19:58→23:59)
[2017-05-04] MEDS: LEVALBUTEROL 1.25 MG/3 ML NEB RESP TX SCH ×2 (19:58→23:59)
[2017-05-04] MEDS: LOSARTAN 25 MG TABLET PO SCH (21:48)
[2017-05-04] MEDS: ZALEPLON 5 MG CAPSULE PO SCH (21:48)
[2017-05-05] MEDS: methylPREDNISolone SOD SUC 40 MG/1 ML VIAL IV SCH ×3 (02:31→15:58)
[2017-05-05] MEDS: LEVALBUTEROL 1.25 MG/3 ML NEB RESP TX SCH ×6 (03:01→23:38)
[2017-05-05] MEDS: IPRATROPIUM 500 MCG/2.5 ML NEB RESP TX SCH ×6 (03:01→23:38)
[2017-05-05 05:05] LABS: Basophils % 0.1 % (0.0-0.8); Hematocrit 39.6 VOL% (42.0-52.0); Hemoglobin 13.2 GM/DL (14.0-18.0); Immature Granulocytes % 0.6 %; Immature Granulocytes Absolute 0.07 #; Lymphocytes # 0.4 10*3/uL (1.4-4.0); Lymphocytes % 3.1 % (21.2-54.2); Mean Corpuscular HGB Conc 33.3 GM/DL (32-36); Mean Corpuscular Hemoglobin 29 PG (27-34); Mean Corpuscular Volume 87.2 FL (87-102); Mean Platelet Volume 9.2 FL (9.6-12.0); Monocytes # 0.8 10*3/uL (0.11-0.8); Monocytes % 6.8 % (1.7-12.7); Neutrophils # 10.6 10*3/uL (1.4-7.4); Neutrophils % 89.4 % (38.7-73.9); Platelet Count 252 T/CUMM (130-400); Red Blood Count 4.54 MC/CUMM (3.8-5.5); Red Cell Distribution Width 13.7 % (9.3-17.3); White Blood Count 11.9 T/CUMM (4-12)
[2017-05-05] MEDS ORDERED: POTASSIUM CHLORIDE 20 MEQ TABLET PO PRN (05:22)
[2017-05-05 05:35] LABS: Magnesium 2.2 MG/DL (1.8-2.4); Osmolality,Calculated 269.8 MOS/KG (273-304)
[2017-05-05 05:36] LABS: Elliptocytes Few; Hypochromasia Slight; Microcytosis 1+; Platelet Estimate Normal
[2017-05-05 08:37] LABS: ABG Base Excess 4.2 MMOL/L (-2.5-2.5); ABG HCO3 31.1 MMOL/L (20-26); ABG Oxygen Saturation 90.5 % (95-100); ABG PCO2 56.4 MM HG (35-48); ABG PO2 55.6 MM HG (80-95); ABG TCO2 32.9 MMOL/L (23-27)
[2017-05-05] MEDS: FUROSEMIDE 40 MG/4 ML VIAL IV SCH ×3 (08:59→16:01)
--- NOTE | 2017-05-05 09:02 | XRay Report ---
XR chest 1V portable Indication: Shortness of breath. Chest one view: Comparison yesterday. Stable hazy obscuration of both lung bases noted with continued cardiomegaly. No new infiltrates are identified. Impression: No change. PROCEDURE INTERPRETED AT [facility] DEPARTMENT OF RADIOLOGY Final Report Signed by: Bao Vera M.D.
[2017-05-05] MEDS: PANTOPRAZOLE 40 MG TABLET PO SCH (09:03)
[2017-05-05] MEDS: CLORAZEPATE 7.5 MG TABLET PO SCH ×2 (09:03→21:20)
[2017-05-05] MEDS: DOCUSATE SODIUM 100 MG CAPSULE PO SCH ×2 (09:03→21:18)
[2017-05-05] MEDS: guaiFENesin/DM ER 600-30 MG TABLET PO PRN (09:03)
[2017-05-05] MEDS: APIXABAN 5 MG TABLET PO SCH ×2 (09:03→21:18)
[2017-05-05] MEDS: LOSARTAN 25 MG TABLET PO SCH ×2 (09:04→21:19)
--- NOTE | 2017-05-05 09:56 | Family Practice Progress Note ---
Family Practice - PN: Subj Interval history: Patient seen this morning. He had a fairly rough night early in the night and occasionally had periods of tachypnea with respiratory distress. He was put on BiPAP which helped significantly but continues to have cross blood gases with this morning a PO2 of 56 PCO2 56 and pH 7.36. Pulmonary is following and I do appreciate their assistance on this case. Hopefully he will turn around quickly with some diuresis Exam (Progress Note) - Constitutional Vitals: Period Temp Pulse Resp BP Sys/Smallwood Pulse Ox Last 24 Hr 96.5 F-98.4 F 72-118 12-28 90-138/55-102 91-100 Exam: Physical exam grossly unchanged. He is on a BiPAP machine at this time and no respiratory distress at present. Please see ABGs Abdomen soft nondistended Extremities less than 1+ edema Neurologically he is answering and following all commands and does talk fairly coherent Results - Labs CBC & BMP: 05/05/17 04:35 05/05/17 04:35 Assessment and Plan (1) Shortness of breath Status: Acute Assessment and plan: O2 prn and monitor Oxygen Sats 05/03/17. Patient is on oxygen and this is working well. When he starts talking he gets a little bit tachypneic 05/04/2017: The patient is working a little bit harder for breathing and also is tachypneic. We are going to initiate the above and get pulmonary involved. His atrial fibrillation rate has decreased Current Visit: Yes (2) Bilateral lower extremity edema Status: Acute Assessment and plan: Monitor vital I/O . 616's 17: Edema is much improved at this time Current Visit: Yes (3) Atrial fibrillation with RVR Status: Acute Assessment and plan: Admit Monitor Dilpinedazecj Lovenox consult Cardiology . 05/03/17: Continues in atrial fibrillation but the rate is controlled at this time. Patient not having any chest pain Current Visit: Yes
[2017-05-05] MEDS ORDERED: DIGOXIN 0.5 MG/2 ML AMP IV ONE (10:02)
--- NOTE | 2017-05-05 10:05 | Cardiology Progress Note ---
Assessment and Plan (1) Atrial fibrillation with RVR Status: Acute Assessment and plan: 1. 76-year-old overweight white male who reports having increased dyspnea on exertion for the last couple weeks he was incidentally found to have atrial fibrillation with RVR "I just came to Dr. Dominique's for some sleeping pills" 2. 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 3. Mild hyperglycemia noted 2 with no history of diabetes or family history 4. Starting Toprol for rate control so we can get him off his IV diltiazem infusion 5. Give Lasix now and daily 6. Add Eliquis now to reduce his cardioembolic risk May 04, 2017: 1. Mr. Quiroz is clearly worse today with severe dyspnea on exertion and appeared to have severe wheezing 2. 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 3. Given his cross gases/hypercapnia seems to have COPD exacerbation and possible pneumonia; he seems to be responding to BiPAP currently 4. Discontinue all beta-eli and will use diltiazem infusion for rate control 5. Check EKG; he denies chest discomfort and initial troponin was negative. 6. Change low-dose LOUANN inhibitor to ARB in the unlikely chance he has reaction to LOUANN inhibitor. May 05, 2017: 1. Mr. Quiroz's breathing is modestly better today and he is now off of BiPAP, does not appear to be wheezing as he was yesterday. 2. Atrial fibrillation still with modest RVR; give 1 dose of digoxin; diltiazem as needed for rate controlalthough it is a negative inotrope and is a better option than beta-eli given his wheezing yesterday. 3. We only have PA x-rays but read by radiology: "patchy interstitial densities in the lung bases representing infiltrates or cystic bronchiectasis and effusion suspect"; PA and lateral if patient stable enough Cardiomegaly 4. EF 40% without valvular abnormality on admission; may BE rate related 5. Highly suspect NAHEED; he missed take a nap today, but his reports he is sleepy during the day fairly often 6. D-dimer was trivially elevated, and he is on Eliquis; suspect PE is unlikely 7. Still has cross gases with CO2 retention and hypoxia PO2 in the mid 50s. 8. Close observation on telemetry 9. Mild hyperglycemia raises the question of diabetes 10. Continue IV diuresis, check BNP in the morning Current Visit: Yes (2) Shortness of breath Status: Acute Current Visit: Yes Cardiology - PN: Subj Interval history: He reports mild improvement in dyspnea on exertion. He has had no chest discomfort dizziness or other complaints. He is currently changed to facemask oxygen. Exam (Progress Note) - Constitutional Vitals: Period Temp Pulse Resp BP Sys/Smallwood Pulse Ox Last 24 Hr 96.5 F-98.4 F 72-118 12-28 90-138/55-102 91-100 Result/EKG - Labs CBC & BMP: 05/05/17 04:35 05/05/17 04:35 Labs: Laboratory Results - last 24 hr 05/04/17 05/04/17 05/04/17 10:19 10:28 11:19 WBC RBC Hgb Hct MCV MCH MCHC RDW Plt Count MPV Neut % (Auto) Lymph % (Auto) [place]hing % (Auto) Eos % (Auto) Baso % (Auto) Neut # (Auto) Lymph # (Auto) [place]hing # (Auto) Eos # (Auto) Baso # (Auto) Immature Gran % Nucleated RBC % Immature Gran # Nucleated RBCs # Platelet Estimate Hypochromasia Microcytosis Elliptocytes D-Dimer, Quantitative 0.6 ABG pH 7.226 L ABG pCO2 74.4 H* ABG pO2 65.2 L ABG HCO3 24.5 ABG Total CO2 27.5 H ABG O2 Saturation 89.7 L ABG Base Excess 0.3 Sodium Potassium Chloride Carbon Dioxide Anion Gap BUN Creatinine GFR Calculation BUN/Creatinine Ratio Glucose Calculated Osmolality Calcium Magnesium B-Natriuretic Peptide 568 H 05/04/17 05/04/17 05/04/17 12:47 14:46 17:30 WBC RBC Hgb Hct MCV MCH MCHC RDW Plt Count MPV Neut % (Auto) Lymph % (Auto) [place]hing % (Auto) Eos % (Auto) Baso % (Auto) Neut # (Auto) Lymph # (Auto) Pershing # (Auto) Eos # (Auto) Baso # (Auto) Immature Gran % Nucleated RBC % Immature Gran # Nucleated RBCs # Platelet Estimate Hypochromasia Microcytosis Elliptocytes D-Dimer, Quantitative ABG pH 7.245 L 7.277 L 7.302 L ABG pCO2 72.2 H* 69.6 H* 66.6 H ABG pO2 72.8 L 72.1 L 70.5 L ABG HCO3 25.4 31.8 H 32.2 H ABG Total CO2 28.0 H 33.9 H 34.2 H ABG O2 Saturation 92.7 L 93.7 L 94.5 L ABG Base Excess 1.3 2.9 H 3.8 H Sodium Potassium Chloride Carbon Dioxide Anion Gap BUN Creatinine GFR Calculation BUN/Creatinine Ratio Glucose Calculated Osmolality Calcium Magnesium B-Natriuretic Peptide 05/05/17 05/05/17 05/05/17 04:35 04:35 08:34 WBC 11.9 RBC 4.54 Hgb 13.2 L Hct 39.6 L MCV 87.2 MCH 29 MCHC 33.3 RDW 13.7 Plt Count 252 MPV 9.2 L Neut % (Auto) 89.4 H Lymph % (Auto) 3.1 L Pershing % (Auto) 6.8 Eos % (Auto) 0.0 Baso % (Auto) 0.1 Neut # (Auto) 10.6 H Lymph # (Auto) 0.4 L Pershing # (Auto) 0.8 Eos # (Auto) 0.0 Baso # (Auto) 0.0 Immature Gran % 0.6 Nucleated RBC % 0.0 Immature Gran # 0.07 Nucleated RBCs # 0.00 Platelet Estimate Normal Hypochromasia Slight Microcytosis 1+ Elliptocytes Few D-Dimer, Quantitative ABG pH 7.360 ABG pCO2 56.4 H ABG pO2 55.6 L ABG HCO3 31.1 H ABG Total CO2 32.9 H ABG O2 Saturation 90.5 L ABG Base Excess 4.2 H Sodium 130 L Potassium 5.0 Chloride 92 L Carbon Dioxide 30 Anion Gap 13.0 BUN 35 H Creatinine 1.20 GFR Calculation 74 BUN/Creatinine Ratio 29.00 H Glucose 133 H Calculated Osmolality 269.8 L Calcium 9.0 Magnesium 2.2 B-Natriuretic Peptide
--- NOTE | 2017-05-05 10:17 | Pulmonology Progress Note ---
Pulmonary - PN: Subj Interval history: 76-year-old male admitted for A. fib with RVR with subsequent development of respiratory distress yesterday with hypercapnia and hypoxia, prompting pulmonary consultation. Over the last 24 hours, patient has been on BiPAP with subsequent improvement in hypercapnia and has been able to come off BiPAP this morning. He notes improvement in his breathing this morning and objectively his breathing appears improved. Chest x-ray this morning continues to show bilateral pleural effusions and pulmonary edema. Bedside ultrasound performed by myself this morning shows bilateral small, simple appearing pleural effusions with left > right. No new complaints or concerns. Exam (Progress Note) - Constitutional Vitals: Period Temp Pulse Resp BP Sys/Smallwood Pulse Ox Last 24 Hr 96.5 F-98.4 F 72-118 12-28 90-138/55-102 91-100 General appearance: over weight - Head Head exam: Present: normal inspection - Eye Eye exam: Present: EOMI Pupils: Present: RAYNA - Respiratory Respiratory exam: Present: rales (Bilateral bases), wheezes (Decreased from yesterday). Absent: accessory muscle use, prolonged expiratory phase, rhonchi - Cardiovascular Cardiovascular exam: Present: irregular rhythm - GI/Abdominal GI/Abdominal exam: Present: normal bowel sounds, soft - Extremities Exam Extremities exam: Present: edema - Neurological Exam Neurological exam: Present: alert, oriented X3 - Skin Skin exam: Present: normal color, warm, dry Results - Labs CBC & BMP: 05/05/17 04:35 05/05/17 04:35 - Diagnostic Findings Procedure: Chest x-ray: image reviewed by me, report reviewed by me (Bilateral small pleural effusions and bilateral pulmonary edema.) Assessment and Plan (1) Respiratory distress Status: Acute Assessment and plan: 76-year-old male admitted with new finding of A. fib with RVR now in acute respiratory distress with hypercapnia and hypoxia. Etiology is likely related to volume overload in setting of slightly depressed EF and rapid heart rate in addition to possibility of underlying COPD and possible right lower lobe pneumonia given his complaint of coughing up yellow-green sputum for the past few days. Suspicion for PE is low given the low d-dimer and hypercapnia. Patient continues on Eliquis for A. fib. Overnight patient has shown signs of improvement with improved hypercapnia and stable hypoxia. Recommend monitoring patient off BiPAP today and down titrating oxygen as allowed. Continue current therapies for respiratory distress including diuresis, steroids, nebs, & antibiotics. Bedside ultrasound does not show a pleural effusion large enough to warrant thoracentesis. Recommend repeat chest x-ray in the morning for reevaluation. Patient is full code. Recommendations: -Titrate oxygen as allowed for goal sat >90% -ABG 2 hour after stopping BiPAP -Continue Solu-Medrol -Continue Antibiotics -Continue Bronchodilators -Lasix with goal > 1 L net negative for the day -Repeat CXR in the AM -Heart rate control per cardiology Current Visit: Yes (2) Acute respiratory acidosis Status: Acute Assessment and plan: Improved this morning with remaining on BiPAP overnight. Can trial off BiPAP this morning and repeat gas 2 hours after stopping BiPAP. Likely related to pulmonary edema with possible component of underlying undiagnosed COPD. Treat other causes of respiratory distress as above. Current Visit: Yes (3) Atrial fibrillation with RVR Status: Acute Assessment and plan: New finding; cardiology following. Current Visit: Yes (4) Pleural effusion Status: Acute Assessment and plan: Small bilateral pleural effusions noted on chest x-ray and bedside ultrasound today with left greater than right. Likely related to cardiac disease. Not large enough to warrant thoracentesis at this time. They appear simple on ultrasound and are likely transudative in nature. Continue diuresis and monitor for interval worsening. Current Visit: Yes
[2017-05-05] MEDS: LEVOFLOXACIN INJ 500 MG in PREMIX 1 EACH IV SCH (10:33)
[2017-05-05 11:33] LABS: ABG Base Excess 4.2 MMOL/L (-2.5-2.5); ABG Oxygen Saturation 91.8 % (95-100); ABG PCO2 50.2 MM HG (35-48); ABG PH 7.389 (7.35-7.45); ABG PO2 61.4 MM HG (80-95); ABG TCO2 26.6 MMOL/L (23-27)
[2017-05-05] MEDS: DILTIAZEM INJ 100 MG in SODIUM CHLORIDE 0.9% 100 ML IV SCH (17:50)
[2017-05-05] MEDS: ZALEPLON 5 MG CAPSULE PO SCH (21:19)
[2017-05-05 22:30] LABS: Apearance,Urine CLEAR (Clear); Bilirubin,Urine Negative (Negative); Blood, Urine Negative (Negative); Glucose,Urine (UA) Negative (Negative); Hyaline Casts,Urine 27 /LPF (0-3); Ketones,Urine Negative (Negative); Nitrite,Urine Negative (Negative); Protein,Urine Negative; Urine Color Yellow (Yellow); Urine Specific Gravity 1.008 (1.001-1.035); Urine Urobilinogen < 2.0 EU/DL (0.2-1.0)
[2017-05-06] MEDS: DILTIAZEM INJ 100 MG in SODIUM CHLORIDE 0.9% 100 ML IV SCH (01:53)
[2017-05-06] MEDS: methylPREDNISolone SOD SUC 40 MG/1 ML VIAL IV SCH ×3 (01:55→21:55)
[2017-05-06] MEDS: LEVALBUTEROL 1.25 MG/3 ML NEB RESP TX SCH ×6 (03:38→23:04)
[2017-05-06] MEDS: IPRATROPIUM 500 MCG/2.5 ML NEB RESP TX SCH ×6 (03:38→23:04)
[2017-05-06 04:45] LABS: Basophils % 0.1 % (0.0-0.8); Hemoglobin 13.6 GM/DL (14.0-18.0); Immature Granulocytes % 0.6 %; Immature Granulocytes Absolute 0.09 #; Lymphocytes # 0.3 10*3/uL (1.4-4.0); Lymphocytes % 1.9 % (21.2-54.2); Mean Corpuscular Hemoglobin 29 PG (27-34); Mean Corpuscular Volume 85.1 FL (87-102); Mean Platelet Volume 9.3 FL (9.6-12.0); Monocytes # 0.9 10*3/uL (0.11-0.8); Monocytes % 5.8 % (1.7-12.7); Neutrophils # 14.2 10*3/uL (1.4-7.4); Neutrophils % 91.6 % (38.7-73.9); Platelet Count 324 T/CUMM (130-400); Red Cell Distribution Width 13.7 % (9.3-17.3); White Blood Count 15.5 T/CUMM (4-12)
[2017-05-06 05:15] LABS: Calcium 9.5 MG/DL (8.5-10.1); Magnesium 2.6 MG/DL (1.8-2.4); Osmolality,Calculated 283.5 MOS/KG (273-304); Potassium 4.3 MMOL/L (3.5-5.1)
[2017-05-06 05:31] LABS: Hypochromasia 1+; Lymphocytes 3 % (20-55); Microcytosis 1+; Platelet Estimate Adequate; Segmented Neutrophils 87 % (50-85); Total Cells Counted 100
--- NOTE | 2017-05-06 08:06 | Pulmonology Progress Note ---
Pulmonary - PN: Subj Interval history: Patient is a 77-year-old white man that came in with rapid atrial fibrillation and respiratory distress. He apparently was in extreme distress and required BiPAP. He did have some CO2 retention. He was felt to at least have some volume overload and does have a reduced ejection fraction on echo. He says he is feeling much better today and his breathing is close to his baseline. He is not coughing up a lot of sputum now. He is not having any chest pain. He says he is comfortable and said he sat up in a chair yesterday. He has no previous history of having significant lung problems. He has not been tested for sleep apnea. When he came in he did have some CO2 retention. Exam (Progress Note) - Constitutional Vitals: Period Temp Pulse Resp BP Sys/Smallwood Pulse Ox Last 24 Hr 97.0 F-98.8 F 18-128 16-22 92-144/55-76 90-98 General appearance: no acute distress (He is alert and comfortable now.), over weight - Head Head exam: Present: normal inspection, normocephalic - Eye Eye exam: Present: EOMI. Absent: scleral icterus Pupils: Present: RAYNA - ENT ENT exam: Present: normal exam - Neck Neck exam: Present: normal inspection. Absent: lymphadenopathy, thyromegaly - Respiratory Respiratory exam: Present: decreased breath sounds (He does have slightly diminished breath sounds in the bases with some crackles.), rales. Absent: accessory muscle use - Cardiovascular Cardiovascular exam: Present: irregular rhythm. Absent: gallop, JVD, systolic murmur - GI/Abdominal GI/Abdominal exam: Present: normal bowel sounds, distended, soft. Absent: organomegaly, tenderness - Extremities Exam Extremities exam: Present: edema (He has trace ankle edema). Absent: calf tenderness - Neurological Exam Neurological exam: Present: alert, oriented X3, CN II-XII intact - Psychiatric Psychiatric exam: Present: normal affect, normal mood - Skin Skin exam: Present: warm, dry Results - Labs CBC & BMP: 05/06/17 04:31 05/06/17 04:31 - Diagnostic Findings Procedure: Chest x-ray: image reviewed by me, report reviewed by me (Chest x- ray does show cardiomegaly and bibasilar infiltrates) Assessment and Plan (1) Congestive heart failure due to hypertension Status: Acute Assessment and plan: The patient looks like he probably has had some heart failure due to his mild cardiac dysfunction and rapid atrial fibrillation. He does seem to be breathing a little better. He is being evaluated by cardiology. Current Visit: Yes (2) Atrial fibrillation with RVR Status: Acute Assessment and plan: The patient's heart rate is under much better control now. Current Visit: Yes (3) Acute respiratory acidosis Status: Acute Assessment and plan: The patient did come in with CO2 retention and respiratory distress. He may have a component of pneumonia and is getting treatment. He certainly could have obstructive sleep apnea also. He says he is feeling better. Will try to increase his activity. Current Visit: Yes
--- NOTE | 2017-05-06 09:19 | Physician Query Form ---
CLICK EDIT DOCUMENT TO SELECT QUERY ANSWER --> OK --> SIGN Sujatha Stewart RN, CCDS Certified Clinical Winter Intern W) [phone] (f) [phone] [email or web address]: Make your selection(s) from the choices in EACH section by typing an "x" and enter comments in the comment section. Please use your independent medical judgment in providing your response. This request does not imply that any particular answer is desired or expected. CLINICAL INDICATORS: (Providers should not edit this section) The medical record indicates that the patient was admitted with AF, later developed respiratory distress, BNP ^ to 568#, "ejection fraction 40%", Echo shows reduced systolic function, and the patient was placed on IV Lasix. Please provide further specificity regarding CHF. ACUITY: ( x) Acute ( ) Chronic ( ) Acute on Chronic ( ) Clinically unable to determine TYPE: ( ) Systolic (HFrEF - heart failure with reduced systolic function/EF) ( ) Diastolic (HFpEF - heart failure with preserved systolic function/EF) ( x) Combined Systolic/Diastolic ( ) Other, please specify: ( ) Clinically unable to determine ( ) The patient does NOT have CHF COMMENTS: PLEASE ALSO DOCUMENT RESPONSE IN PROGRESS NOTES AND/OR DISCHARGE SUMMARY Use of terms such as suspected, likely, or probable (associated with a specific diagnosis that is being evaluated, monitored, or treated as if it exists) are acceptable and can be restated in the discharge summary if not ruled out. MTDD
--- NOTE | 2017-05-06 09:20 | Physician Query Form ---
CLICK EDIT DOCUMENT TO SELECT QUERY ANSWER --> OK --> SIGN Sujatha Stewart RN, CCDS Certified Clinical Floor Surfacer W) [phone] (f) [phone] [email or web address] PROVIDERS: Make your selection(s) from the choices in EACH section by typing an "x" and enter comments in the comment section. Please use your independent medical judgment in providing your response. This request does not imply that any particular answer is desired or expected. CLINICAL INDICATORS: (Providers should not edit this section) The medical record indicates that the patient was admitted with AF, later developed "worsening respiratory distress", "labored breathing", "accessory muscle use", pH 7.226#, pCO2 74.4#, p02 65.2 and the patient was placed on BiPAP/ Venturi Mask @ 12-15 Liters. If possible, please further clarify the type and acuity of respiratory diagnosis : ACUITY: ( ) Acute ( ) Chronic (x ) Acute on Chronic TYPE: ( ) Respiratory failure with hypoxia ( x) Respiratory failure with hypercapnia ( ) Respiratory Arrest ( ) Postprocedural/postoperative respiratory failure ( ) Respiratory Insufficiency ( ) ARDS (Adult/Acute Respiratory Distress Syndrome) ( ) Other, please specify: ( ) Clinically unable to determine Recognized criteria for respiratory failure PH <7.35 or >7.45 PO2 <60 PCO2 >50 RR >24 O2 Sat <90% on RA or <95% on O2 Use of accessory muscles Unable to speak in full sentences Intubation is not required COMMENTS: PLEASE ALSO DOCUMENT RESPONSE IN PROGRESS NOTES AND/OR DISCHARGE SUMMARY Use of terms such as suspected, likely, or probable (associated with a specific diagnosis that is being evaluated, monitored, or treated as if it exists) are acceptable and can be restated in the discharge summary if not ruled out. MTDD
--- NOTE | 2017-05-06 09:58 | XRay Report ---
XR chest 2V Date: 05/06/2017 7:33 AM History: Shortness of breath, infiltrate, effusion, CHF Comparison: 05/05/2017 Technique: PA and lateral chest Findings: The heart is smaller in size with reduced parenchymal findings and smaller pleural effusions. Stable mediastinum with degenerative changes. Impression: Improved CHF with smaller pleural effusions. PROCEDURE INTERPRETED AT [facility] DEPARTMENT OF RADIOLOGY Final Report Signed by: Dr. Tanika Randhawa
[2017-05-06] MEDS: FUROSEMIDE 40 MG/4 ML VIAL IV SCH ×2 (10:04→10:10)
[2017-05-06] MEDS: guaiFENesin/DM ER 600-30 MG TABLET PO PRN (10:14)
[2017-05-06] MEDS: DOCUSATE SODIUM 100 MG CAPSULE PO SCH ×2 (10:14→21:58)
[2017-05-06] MEDS: CLORAZEPATE 7.5 MG TABLET PO SCH ×2 (10:14→21:56)
[2017-05-06] MEDS: PANTOPRAZOLE 40 MG TABLET PO SCH (10:14)
[2017-05-06] MEDS: APIXABAN 5 MG TABLET PO SCH (10:14)
[2017-05-06] MEDS: LOSARTAN 25 MG TABLET PO SCH ×2 (10:14→21:55)
[2017-05-06] MEDS: LEVOFLOXACIN INJ 500 MG in PREMIX 1 EACH IV SCH (10:17)
[2017-05-06] MEDS ORDERED: diphenhydrAMINE CAP 25 MG CAPSULE PO ONE (11:02)
[2017-05-06] MEDS ORDERED: DIAZEPAM 5 MG TABLET PO ONE (11:02)
--- NOTE | 2017-05-06 11:08 | Cardiology Progress Note ---
Kate Polanco April RN, am scribing for, and in the presence of, Kristel ParnellDO 11 :07. Assessment and Plan - Time spent with patient Time spent with patient: Greater than 30 minutes (Chart review examination documentation) (1) Atrial fibrillation with RVR Status: Acute Current Visit: Yes (2) Shortness of breath Status: Acute Current Visit: Yes (3) Hyponatremia Status: Acute Current Visit: Yes (4) Bilateral lower extremity edema Status: Acute Current Visit: Yes (5) Acute respiratory acidosis Status: Acute Current Visit: Yes (6) Pleural effusion Status: Acute Current Visit: Yes Cardiology - PN: Subj Interval history: Armoring Machine Operator: Dr. Mayfield (new) PCP: Dr. Dominique SUMMARY: Mr. Quiroz is a 76 year old male who has never seen a pasteurizing machine operator in the past and denies ever having had a stress test or heart cath. He denies any health problems and does not take any home medications on a regular basis other than supplements. He reports last Saturday he began to feel bloated like he was having a "gas attack". He denied any chest pain with this. He reports getting much short of breath after walking to his mailbox last week. He has had a cough and began taking cold medicine last weekend. He is not sure what he is taking or if it has a decongestant in it. He also states that he drinks a lot of coffee. When asked how much he drinks, he states "a couple of pots". He reports the symptoms continued and he saw Dr. Dominique last week in the office for further evaluation. He was found to be in atrial fibrillation and was sent to the emergency department at [facility] for further evaluation. EKG on admission showed atrial fibrillation with RVR, heart rate of 132. He was given Cardizem 10 mg IV 1 and started on a Cardizem infusion in the emergency department. He was also started on Lovenox. Labs were unremarkable. Chest x-ray showed interstitial densities in the lung bases bilaterally, infiltrates or cystic bronchiectasis and effusion suspected. Echocardiogram showed ejection fraction of 40% without significant valvular disease. Venous Doppler was negative for DVT in lower extremities. He was started on Toprol p.o. and Lasix IV. Eliquis was also added to his medication regimen. Over the weekend his dyspnea got worse and he had severe wheezing. He had to be placed on BiPAP and beta blockers were discontinued. This morning he seen resting in bed in no acute distress. He is now on oxygen via nasal cannula with O2 sat of 97%. He reports his breathing is better, and he does feel as if he has some congestion in his chest. He denies any chest pain or discomfort. residential monitor currently shows atrial fibrillation with heart rates in the 120s. Apparently his IV infiltrated earlier and nursing staff has had a difficult time getting a line. They were just now able to get a new IV started and Cardizem is infusing at 15 mL/h. His white count is elevated at 15.5. His creatinine is trending upward, today is 1.40. I reviewed the chart I discussed and examined with and examined the patient also discussed with the patient's . Discussed with Ms. Felix as outlined above. The patient basically denies any problems however he now has been newly diagnosed with atrial fibrillation rapid ventricular response which was asymptomatic and has a cardiomyopathy with ejection fraction proximal 40%. He also has pleural effusion and since he is receiving diuretics and ARB has hyponatremia and worsening creatinine. Interestingly despite any long history he has hypercarbia respiratory acidosis for which pulmonary is seeing him. I recommended based on his cardiomyopathy that he had left heart catheterization selective coronary angiography before discharge. I am concerned about his hyponatremia is worsening but I think if we stop his diuretics this will improve. I discussed with the patient and his about left heart catheterization and anticipate this tomorrow if there is no problems. The patient is agreeable. Exam (Progress Note) - Constitutional Vitals: Period Temp Pulse Resp BP Sys/Smallwood Pulse Ox Last 24 Hr 97.0 F-98.8 F 18-128 16-22 92-144/55-76 90-98 General appearance: no acute distress, over weight - Head Head exam: Absent: abrasion, hematoma - Eye Eye exam: Absent: periorbital swelling, laceration to eyelids - Neck Neck exam: Absent: tenderness - Respiratory Respiratory exam: Present: decreased breath sounds (Worse on the left), rales, other (Oxygen via nasal cannula). Absent: accessory muscle use, chest wall tenderness - Cardiovascular Cardiovascular exam: Present: irregular rhythm, tachycardia - GI/Abdominal GI/Abdominal exam: Present: normal bowel sounds, soft (But protuberant). Absent : distended, tenderness - Extremities Exam Extremities exam: Present: edema (Trace to bilateral lower extremities). Absent : calf tenderness - Neurological Exam Neurological exam: Present: alert, oriented X3 - Psychiatric Psychiatric exam: Present: normal affect, normal mood - Skin Skin exam: Present: warm, dry Result/EKG - Labs CBC & BMP: 05/06/17 04:31 05/06/17 04:31 Lab Results: I have reviewed the past 24 hour labs Labs: Laboratory Results - last 24 hr 05/05/17 05/05/17 05/05/17 08:34 11:31 22:00 WBC RBC Hgb Hct MCV MCH MCHC RDW Plt Count MPV Neut % (Auto) Lymph % (Auto) [place] % (Auto) Eos % (Auto) Baso % (Auto) Neut # (Auto) Lymph # (Auto) [place] # (Auto) Eos # (Auto) Baso # (Auto) Total Counted Immature Gran % Nucleated RBC % Immature Gran # Segmented Neutrophils Lymphocytes Monocytes Nucleated RBCs # Platelet Estimate Hypochromasia Microcytosis Morphology Comment ABG pH 7.360 7.389 ABG pCO2 56.4 H 50.2 H ABG pO2 55.6 L 61.4 L ABG HCO3 31.1 H 28.0 H ABG Total CO2 32.9 H 26.6 ABG O2 Saturation 90.5 L 91.8 L ABG Base Excess 4.2 H 4.2 H FiO2 35.00 Sodium Potassium Chloride Carbon Dioxide Anion Gap BUN Creatinine GFR Calculation BUN/Creatinine Ratio Glucose Calculated Osmolality Calcium Magnesium B-Natriuretic Peptide Urine Color Yellow Urine Appearance Clear Urine pH 5.0 Ur Specific [place] 1.008 Urine Protein Negative Urine Glucose (UA) Negative Urine Ketones Negative Urine Blood Negative Urine Nitrate Negative Urine Bilirubin Negative Urine Urobilinogen < 2.0 H Urine Leukocytes Negative Hyaline Casts 27 Ur Culture Indicated? Not indicated 05/06/17 05/06/17 05/06/17 04:31 04:31 04:31 WBC 15.5 H D RBC 4.70 Hgb 13.6 L Hct 40.0 L MCV 85.1 L MCH 29 MCHC 34.0 RDW 13.7 Plt Count 324 D MPV 9.3 L Neut % (Auto) 91.6 H Lymph % (Auto) 1.9 L [place] % (Auto) 5.8 Eos % (Auto) 0.0 Baso % (Auto) 0.1 Neut # (Auto) 14.2 H Lymph # (Auto) 0.3 L [place] # (Auto) 0.9 H Eos # (Auto) 0.0 Baso # (Auto) 0.0 Total Counted 100 Immature Gran % 0.6 Nucleated RBC % 0.0 Immature Gran # 0.09 Segmented Neutrophils 87 H Lymphocytes 3 L Monocytes 10 Nucleated RBCs # 0.00 Platelet Estimate Adequate Hypochromasia 1+ Microcytosis 1+ Morphology Comment ABG pH ABG pCO2 ABG pO2 ABG HCO3 ABG Total CO2 ABG O2 Saturation ABG Base Excess FiO2 Sodium 132 L Potassium 4.3 Chloride 92 L Carbon Dioxide 31 Anion Gap 13.3 BUN 55 H D Creatinine 1.40 H GFR Calculation 62 BUN/Creatinine Ratio 39.00 H Glucose 188 H Calculated Osmolality 283.5 Calcium 9.5 Magnesium 2.6 H B-Natriuretic Peptide 176 H Urine Color Urine Appearance Urine pH Ur Specific [place] Urine Protein Urine Glucose (UA) Urine Ketones Urine Blood Urine Nitrate Urine Bilirubin Urine Urobilinogen Urine Leukocytes Hyaline Casts Ur Culture Indicated? - EKG EKG results: interpreted by me EKG shows: atrial fibrillation ISoheila Shea, DO, personally performed the services described in this documentation, ascribed by Lorraine Love RN in my presence, and it is both accurate and complete .
[2017-05-06] MEDS: DILTIAZEM CD 120 MG CAPSULE PO SCH (11:34)
[2017-05-06] MEDS: CARVEDILOL 6.25 MG TABLET PO SCH ×2 (11:34→21:59)
--- NOTE | 2017-05-06 17:45 | Family Practice Progress Note ---
Family Practice - PN: Subj Interval history: Patient seen this afternoon. He is breathing significantly better at this time is satting 96% with an FiO2 of 50. He does have a slight elevation of white count 15 5 but has been on steroids. Is currently getting antibiotics. His creatinine is slightly elevated at 1.4, but beta natriuretic peptide is come down from 568 to176. Will continue to monitor. Appreciate cardiology and pulmonary seeing him and he there is a cath that is planned for in the morning. We will continue to monitor lab carefully. Should be noted his sodium has come up some Exam (Progress Note) - Constitutional Vitals: Period Temp Pulse Resp BP Sys/Smallwood Pulse Ox Last 24 Hr 97.0 F-98.1 F 18-128 16-22 99-144/55-76 90-98 Exam: Doing significantly better today breathing much easier. Cardiovascular no gallop or rub no chest pain Lungs a few basilar rales but no garrett wheezing is appreciated Abdomen soft nondistended Extremities less than 1+ edema bilateral lower extremities Results - Labs CBC & BMP: 05/06/17 04:31 05/06/17 04:31 Assessment and Plan (1) Shortness of breath Status: Acute Assessment and plan: O2 prn and monitor Oxygen Sats 05/03/17. Patient is on oxygen and this is working well. When he starts talking he gets a little bit tachypneic 05/04/2017: The patient is working a little bit harder for breathing and also is tachypneic. We are going to initiate the above and get pulmonary involved. His atrial fibrillation rate has decreased 05/06/2017: Scheduled for cath tomorrow hopefully the patient will continue to tolerate BiPAP and avoid intubation. I do agree that he may be needing a sleep study Current Visit: Yes (2) Bilateral lower extremity edema Status: Acute Assessment and plan: Monitor vital I/O . 616's 17: Edema is much improved at this time 05/06/1970 edema continues to be improved Current Visit: Yes (3) Atrial fibrillation with RVR Status: Acute Assessment and plan: Admit Monitor Dilatizem , Lovenox consult Cardiology . 05/03/17: Continues in atrial fibrillation but the rate is controlled at this time. Patient not having any chest pain 05/06/2017: Was in A. fib yesterday but rate was well controlled. Will monitor. Today remains in A. fib Current Visit: Yes
[2017-05-06] MEDS: ZALEPLON 5 MG CAPSULE PO SCH (21:57)
[2017-05-07] MEDS: IPRATROPIUM 500 MCG/2.5 ML NEB RESP TX SCH ×6 (02:51→23:44)
[2017-05-07] MEDS: LEVALBUTEROL 1.25 MG/3 ML NEB RESP TX SCH ×6 (02:51→23:44)
[2017-05-07 04:52] LABS: Basophils % 0.1 % (0.0-0.8); Hematocrit 40.4 VOL% (42.0-52.0); Hemoglobin 13.3 GM/DL (14.0-18.0); Immature Granulocytes % 0.7 %; Immature Granulocytes Absolute 0.08 #; Lymphocytes # 0.2 10*3/uL (1.4-4.0); Lymphocytes % 1.8 % (21.2-54.2); Mean Corpuscular HGB Conc 32.9 GM/DL (32-36); Mean Corpuscular Hemoglobin 29 PG (27-34); Mean Corpuscular Volume 88.2 FL (87-102); Mean Platelet Volume 9.1 FL (9.6-12.0); Monocytes # 0.6 10*3/uL (0.11-0.8); Monocytes % 5.1 % (1.7-12.7); Neutrophils # 10.1 10*3/uL (1.4-7.4); Neutrophils % 92.3 % (38.7-73.9); Platelet Count 294 T/CUMM (130-400); Red Blood Count 4.58 MC/CUMM (3.8-5.5); Red Cell Distribution Width 14.1 % (9.3-17.3)
[2017-05-07 05:17] LABS: Calcium 8.9 MG/DL (8.5-10.1); Osmolality,Calculated 291.7 MOS/KG (273-304); Potassium 5.2 MMOL/L (3.5-5.1)
[2017-05-07 05:32] LABS: Band Neutrophils 1 % (0-10); Lymphocytes 4 % (20-55); Platelet Estimate Normal; Segmented Neutrophils 90 % (50-85); Total Cells Counted 100
[2017-05-07 05:33] LABS: Anisocytosis 1+; Macrocytosis 1+
[2017-05-07] MEDS ORDERED: LIDOCAINE 1% 20 ML VIAL ONE ×2 (06:49→07:13)
[2017-05-07] MEDS ORDERED: HEPARIN/NACL 0.9% 2 UNITS/ML 1,000 ML IV ONE (06:49)
[2017-05-07] MEDS ORDERED: diphenhydrAMINE CAP 25 MG CAPSULE PO SCH (07:00)
[2017-05-07] MEDS ORDERED: DIAZEPAM 5 MG TABLET PO SCH (07:00)
[2017-05-07] MEDS ORDERED: HYDROmorphone 2 MG/1 ML VIAL ONE (07:19)
[2017-05-07] MEDS ORDERED: MIDAZOLAM 2 MG/2 ML VIAL ONE (07:19)
[2017-05-07] MEDS ORDERED: ASPIRIN 325 MG TABLET ONE (07:27)
--- NOTE | 2017-05-07 07:56 | Cardiac Catheterization ---
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 He is undergoing cardiac catheterization at this time for definitive coronary artery assessment possible revascularization. PROCEDURES PERFORMED: 1. Right femoral percutaneous arteriotomy 2. Left heart catheterization. 3. Resting hemodynamics. 4. Left ventriculography. 5. Coronary arteriography. 6. Right femoral arteriogram. 7. Angio-Seal closure of the right femoral artery. DESCRIPTION OF PROCEDURE: After obtaining informed consent, the patient was brought to the cardiac catheterization lab where the right groin was prepped and draped in the usual sterile manner. Using IV sedation, local anesthesia, and Modified Seldinger technique, a needle was placed in the right femoral artery and a sheath was positioned without difficulty. A left coronary catheter was advanced over a guidewire under fluoroscopic control to the ascending aorta where angiograms of the left coronary artery were undertaken in multiple views. After adequate angiograms, this catheter was withdrawn and a right coronary catheter was advanced over a guidewire under fluoroscopic control to the ascending aorta with angiograms of the RCA were undertaken in numerous projections. After adequate angiograms, this catheter was removed and a pigtail ventriculographic catheter was advanced over a guidewire under fluoroscopic control to the aortic valve and left ventricular pressures were measured. After adequate pressures were measured, this catheter was used to perform left ventriculography in the QURESHI projection. This catheter was then withdrawn under hemodynamic monitoring and removed from the patient. A right femoral arteriogram was performed showing adequate sheath placement for closure device deployment. The sheath was then removed and an Angio-Seal device was used to obtain hemostasis. The patient was transferred back to the room having suffered no immediate complications. HEMODYNAMICS: See the accompanying data sheet. CORONARY ARTERIOGRAPHY: LEFT MAIN: The left main coronary artery is a large caliber vessel, which trfurcates into the left anterior descending, ramus intermedius, and left circumflex coronary arteries. The left main coronary artery has no significant obstructive disease. RAMUS INTERMEDIUS this is a moderate-sized vessel which courses over the anterolateral wall. I do not see any significant obstructive disease in this vessel. LEFT CIRCUMFLEX: The left circumflex coronary artery is a moderate-sized vessel which gives off a couple of very small obtuse marginal branches and a moderate-sized posterior lateral branch. The left circumflex and its tributaries are angiographically free of significant obstructive disease. LEFT ANTERIOR DESCENDING: The left anterior descending artery is a moderate- sized vessel which gives off a couple of moderate-sized diagonal branches. There are mild luminal irregularities in this vessel but I do not see any significant focal obstruction. RIGHT CORONARY ARTERY: The right coronary artery is moderate to large caliber vessel which gives of the posterior descending artery and a posterolateral system. There are mild luminal irregularities in the right coronary system but I do not see any significant focal obstructive disease. LEFT VENTRICULOGRAPHY: Left ventricular ejection fraction is estimated at 25-30 % with global hypokinesis. PERIPHERAL ARTERIOGRAPHY: Right femoral arteriogram shows a normal right iliofemoral artery with adequate sheath placement for closure device deployment. IMPRESSIONS: 1. I do not see any significant obstructive coronary artery disease to explain the patient's cardiomyopathy. 2. Severely reduced left ventricular ejection fraction with global hypokinesis as described above. 3. Normal right iliofemoral arterial system with successful Angio-Seal closure of this vessel. 4. New onset atrial fibrillation. PLAN: The patient's cardiac catheterization shows no significant obstructive coronary artery disease. 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 Case was discussed with Dr. Parnell today. Anesthesia: minimal conscious sedation Surgeon / Physician: Ángel Dave Estimated blood loss: minimal Condition: stable Disposition: floor - Medications / Follow-up
[2017-05-07] MEDS ORDERED: SODIUM CHLORIDE 0.9% 1,000 ML IV SCH (08:00)
--- NOTE | 2017-05-07 08:17 | XRay Report ---
History: Shortness of breath Date: 05/07/2017 Study: Chest x-ray AP portable Comparison exam: 05/06/2017 There is continued cardiomegaly. Mediastinal contours are unchanged. The pulmonary vasculature is slightly prominent. There is increased hazy edema in the lower lungs compared to the previous study. There is mild right greater than left bilateral pleural effusion, increased. Osseous structures are unchanged. Impression: Mildly increased pulmonary edema and bilateral pleural effusion related to congestive heart failure compared to the previous study PROCEDURE INTERPRETED AT [facility] DEPARTMENT OF RADIOLOGY Final Report Signed by: Dr. Yoko Godinez
--- NOTE | 2017-05-07 08:52 | Pulmonology Progress Note ---
Pulmonary - PN: Subj Interval history: Patient is a 77-year-old white man that came in with rapid atrial fibrillation and respiratory distress. He apparently was in extreme distress and required BiPAP. He did have some CO2 retention. He was felt to at least have some volume overload and does have a reduced ejection fraction on echo. He says he is feeling much better today and his breathing is close to his baseline. He is not coughing up a lot of sputum now. He is not having any chest pain. He says he is comfortable and said he sat up in a chair yesterday. He has no previous history of having significant lung problems. He has not been tested for sleep apnea. When he came in he did have some CO2 retention. This morning the patient went for cardiac catheterization. He has a reduced ejection fraction but no coronary artery disease. He is requiring some BiPAP and his chest x-ray still looks congested. His creatinine is down to 0.9 and he will need Lasix restarted soon. He will continue with respiratory therapy. Exam (Progress Note) - Constitutional Vitals: Period Temp Pulse Resp BP Sys/Smallwood Pulse Ox Last 24 Hr 97.2 F-98.1 F 60-114 16-21 111-150/64-75 90-94 Exam: General appearance: no acute distress (He is still sedated from his catheterization and he is requiring BiPAP.), over weight - Head Head exam: Present: normal inspection, normocephalic - Eye Eye exam: Present: EOMI. Absent: scleral icterus Pupils: Present: RAYNA - ENT ENT exam: Present: normal exam - Neck Neck exam: Present: normal inspection. Absent: lymphadenopathy, thyromegaly - Respiratory Respiratory exam: Present: decreased breath sounds (He does have slightly diminished breath sounds in the bases with some crackles.), rales. He does not have any wheezing. Absent: accessory muscle use - Cardiovascular Cardiovascular exam: Present: irregular rhythm. Absent: gallop, JVD, systolic murmur - GI/Abdominal GI/Abdominal exam: Present: normal bowel sounds, distended, soft. Absent: organomegaly, tenderness - Extremities Exam Extremities exam: Present: edema (He has trace ankle edema). Absent: calf tenderness - Neurological Exam Neurological exam: Present: He is still sedated at present. - Psychiatric Psychiatric exam: Present: normal affect, normal mood - Skin Skin exam: Present: warm, dry Results - Labs CBC & BMP: 05/07/17 04:20 05/07/17 04:20 - Diagnostic Findings Procedure: Chest x-ray: image reviewed by me, report reviewed by me (Chest x- ray shows cardiomegaly with bibasilar infiltrates and consolidation. Some of this may be pleural fluid.) Assessment and Plan (1) Congestive heart failure due to hypertension Status: Acute Assessment and plan: The patient looks like he probably has had some heart failure due to his mild cardiac dysfunction and rapid atrial fibrillation. His cardiac catheterization shows a reduced ejection fraction but no coronary artery disease. He will continue to need treatment for congestive heart failure. Current Visit: Yes (2) Atrial fibrillation with RVR Status: Acute Assessment and plan: The patient's heart rate is under much better control now. Current Visit: Yes (3) Acute respiratory acidosis Status: Acute Assessment and plan: The patient did come in with CO2 retention and respiratory distress. He may have a component of pneumonia and is getting treatment. He certainly could have obstructive sleep apnea also. He is requiring some BiPAP now because of his sedation. Current Visit: Yes
[2017-05-07] MEDS ORDERED: NALOXONE 0.4 MG/ML VIAL IV ONE ×2 (09:12→10:55)
[2017-05-07] MEDS ORDERED: FLUMAZENIL 0.5 MG/5 ML VIAL IV ONE ×2 (09:36→09:43)
[2017-05-07] MEDS ORDERED: FUROSEMIDE 100 MG/10 ML VIAL ONE (09:54)
[2017-05-07] MEDS ORDERED: FUROSEMIDE 40 MG/4 ML VIAL IV ONE (09:55)
[2017-05-07] MEDS: methylPREDNISolone SOD SUC 40 MG/1 ML VIAL IV SCH ×2 (10:00→21:07)
--- NOTE | 2017-05-07 10:15 | Event Note ---
I was called about the patient's decreased level of consciousness and responsiveness after his left heart catheterization. He was given Versed and fentanyl in the Chief Executive Or Managing Director but did not respond to Narcan administration. I gave 0.5 mg of Romazicon and he went from completely unresponsive to some response to verbal stimuli when he still not very conversant he will grunt and moan when asked close ended questions. This very well may be CO2 retention as he has had problems with this in the past he is on BiPAP at this time. I will CT his head and also check arterial blood gases try to minimize his O2 flow. I discussed with Dr. Dave.
[2017-05-07 10:23] LABS: ABG Base Excess 5.1 MMOL/L (-2.5-2.5); ABG HCO3 37.5 MMOL/L (20-26); ABG Oxygen Saturation 97.1 % (95-100); ABG PO2 108.8 MM HG (80-95); ABG TCO2 40.7 MMOL/L (23-27)
[2017-05-07 10:26] LABS: ABG PH 7.179 (7.35-7.45)
--- NOTE | 2017-05-07 10:41 | CT Report ---
CT brain Indication: Unresponsive Comparison: None available Technique: Axial CT imaging of the brain is performed without contrast with 3 mm increments. Findings: No evidence of hemorrhage, mass mass effect midline shift or acute infarct seen. There is moderate diffuse cerebral and cerebellar atrophy brain parenchyma attenuation and differentiation appears within normal limits. The ventricles and cisterns are normal in caliber. No cranial or skull base abnormality is identified. Impression: No evidence of acute process demonstrated. This CT exam was performed using one or more the following dose reduction techniques: Automated exposure control, adjustment of the MA and/or KV according to patient size, or use of iterative reconstruction technique. PROCEDURE INTERPRETED AT [facility] DEPARTMENT OF RADIOLOGY Final Report Signed by: Dr. Chacorta Leyva
[2017-05-07] MEDS: CLORAZEPATE 7.5 MG TABLET PO SCH ×2 (11:15→21:39)
[2017-05-07] MEDS: PANTOPRAZOLE 40 MG TABLET PO SCH (11:15)
[2017-05-07] MEDS: DILTIAZEM CD 120 MG CAPSULE PO SCH (11:15)
[2017-05-07] MEDS: DOCUSATE SODIUM 100 MG CAPSULE PO SCH ×2 (11:15→21:39)
[2017-05-07] MEDS: LOSARTAN 25 MG TABLET PO SCH ×2 (11:15→21:39)
[2017-05-07] MEDS: CARVEDILOL 6.25 MG TABLET PO SCH ×2 (11:15→21:39)
[2017-05-07] MEDS: DILTIAZEM INJ 100 MG in SODIUM CHLORIDE 0.9% 100 ML IV SCH ×2 (11:17→18:38)
[2017-05-07 11:29] LABS: Apearance,Urine CLEAR (Clear); Bilirubin,Urine Negative (Negative); Blood, Urine Negative (Negative); Glucose,Urine (UA) Negative (Negative); Hyaline Casts,Urine 1 /LPF (0-3); Ketones,Urine Negative (Negative); Nitrite,Urine Negative (Negative); Protein,Urine Negative; RBC,Urine 1 /HPF (0-4); Urine Color Straw (Yellow); Urine Specific Gravity 1.009 (1.001-1.035); Urine Urobilinogen < 2.0 EU/DL (0.2-1.0)
[2017-05-07 12:26] LABS: ABG Base Excess 7.6 MMOL/L (-2.5-2.5); ABG HCO3 38.3 MMOL/L (20-26); ABG Oxygen Saturation 90.4 % (95-100); ABG PO2 61.7 MM HG (80-95); ABG TCO2 40.9 MMOL/L (23-27)
[2017-05-07 12:28] LABS: ABG PCO2 85.3 MM HG (35-48)
[2017-05-07] MEDS: LEVOFLOXACIN INJ 500 MG in PREMIX 1 EACH IV SCH (13:17)
--- NOTE | 2017-05-07 15:24 | Family Practice Progress Note ---
Family Practice - PN: Subj Interval history: Was called from the floor and patient was having some altered mental status changes and basically retaining CO2. He was also having some degree of hypoxia as noted by the ABGs, please see results. He was given some Narcan as well as Romazicon to try to reverse sedation, this partially worked as a patient was arousable. But he still having some difficulty breathing and was felt we need to move him to the CCU for further monitoring. On arrival we did reinitiate BiPAP and he started answering simple questions. We will continue to monitor closely overnight in CCU. Patient is status post cardiac cath and this was reported as being grossly normal. Appreciate cardiology and pulmonary on board. Exam (Progress Note) - Constitutional Vitals: Period Temp Pulse Resp BP Sys/Smallwood Pulse Ox Last 24 Hr 96.8 F-98.1 F 60-138 14-32 89-166/63-96 90-97 Exam: Status post catheterization. Incision site is without any swelling or noted hematoma. Patient is very lethargic and has some CO2 retention. Neck is supple trachea midline on BiPAP Cardia vascular rate is irregular no gallop or rub Lungs few basilar rales. Abdomen is mildly distended but soft and nontender. This is a normal body habitus Extremities 1+ edema bilateral lower extremities. Results - Labs CBC & BMP: 05/07/17 04:20 05/07/17 04:20 Assessment and Plan (1) Shortness of breath Status: Acute Assessment and plan: O2 prn and monitor Oxygen Sats 05/03/17. Patient is on oxygen and this is working well. When he starts talking he gets a little bit tachypneic 05/04/2017: The patient is working a little bit harder for breathing and also is tachypneic. We are going to initiate the above and get pulmonary involved. His atrial fibrillation rate has decreased 05/06/2017: Scheduled for cath tomorrow hopefully the patient will continue to tolerate BiPAP and avoid intubation. I do agree that he may be needing a sleep study 05/07/2017 patient became more obtunded and short of breath and we moved him to CCU for close observation will continue BiPAP at this time with pulmonary evaluation Current Visit: Yes (2) Bilateral lower extremity edema Status: Acute Assessment and plan: Monitor vital I/O . 616's 17: Edema is much improved at this time 05/06/1970 edema continues to be improved 05/07/1970 edema has improved but he still has less than 1+ edema bilateral lower extremities. Was given Lasix. Current Visit: Yes (3) Atrial fibrillation with RVR Status: Acute Assessment and plan: Admit Monitor Dilatizem , Lovenox consult Cardiology . 05/03/17: Continues in atrial fibrillation but the rate is controlled at this time. Patient not having any chest pain 05/06/2017: Was in A. fib yesterday but rate was well controlled. Will monitor. Today remains in A. fib 05/07/2017 atrial fibrillation with rate controlled at this time. We are continuing on current regimen Current Visit: Yes
[2017-05-07] MEDS: ZALEPLON 5 MG CAPSULE PO SCH (21:39)
[2017-05-08] MEDS: IPRATROPIUM 500 MCG/2.5 ML NEB RESP TX SCH ×6 (02:27→23:52)
[2017-05-08] MEDS: LEVALBUTEROL 1.25 MG/3 ML NEB RESP TX SCH ×6 (02:27→23:52)
--- NOTE | 2017-05-08 08:45 | Family Practice Progress Note ---
Family Practice - PN: Subj Interval history: Patient seen this morning. Hemodynamically stable. Arouses easily and talks coherently at this time. No acute distress. Is on 6 L O2 and satting well. No fever or chills. Did not have any chest pain or other constitutional symptoms at present. He does still have a Justin in and I will maintain this for the next several hours. Plan transfer to telemetry Exam (Progress Note) - Constitutional Vitals: Period Temp Pulse Resp BP Sys/Smallwood Pulse Ox Last 24 Hr 96.7 F-98.3 F 71-138 14-32 89-166/63-120 83-97 Exam: Alert and responsive this morning incision site is without any swelling or noted hematoma. Neck is supple trachea midline on BiPAP Cardia vascular rate is irregular no gallop or rub Lungs few basilar rales. Abdomen soft and nontender. This is a normal body habitus Extremities 1+ edema bilateral lower extremities. Results - Labs CBC & BMP: 05/07/17 04:20 05/07/17 04:20 Assessment and Plan (1) Shortness of breath Status: Acute Assessment and plan: O2 prn and monitor Oxygen Sats 05/03/17. Patient is on oxygen and this is working well. When he starts talking he gets a little bit tachypneic 05/04/2017: The patient is working a little bit harder for breathing and also is tachypneic. We are going to initiate the above and get pulmonary involved. His atrial fibrillation rate has decreased 05/06/2017: Scheduled for cath tomorrow hopefully the patient will continue to tolerate BiPAP and avoid intubation. I do agree that he may be needing a sleep study 05/07/2017 patient became more obtunded and short of breath and we moved him to CCU for close observation will continue BiPAP at this time with pulmonary evaluation 05/08/2017 patient more alert this morning now 6 L O2 will transfer to telemetry Current Visit: Yes (2) Bilateral lower extremity edema Status: Acute Assessment and plan: Monitor vital I/O . 616's 17: Edema is much improved at this time 05/06/1970 edema continues to be improved 05/07/1970 edema has improved but he still has less than 1+ edema bilateral lower extremities. Was given Lasix. 05/08/2017 decreased edema in feet we will continue to monitor Current Visit: Yes (3) Atrial fibrillation with RVR Status: Acute Assessment and plan: Admit Monitor Dilatizem , Lovenox consult Cardiology . 05/03/17: Continues in atrial fibrillation but the rate is controlled at this time. Patient not having any chest pain 05/06/2017: Was in A. fib yesterday but rate was well controlled. Will monitor. Today remains in A. fib 05/07/2017 atrial fibrillation with rate controlled at this time. We are continuing on current regimen 05/08/2017 patient continues in atrial fibrillation on IV Cardizem Current Visit: Yes
--- NOTE | 2017-05-08 08:56 | Physician Query Form ---
CLICK EDIT DOCUMENT TO SELECT QUERY ANSWER --> OK --> SIGN Sujatha Stewart RN, CCDS Certified Clinical Pediatric Dental Hygienist W) [phone] (f) [phone] [email or web address] PROVIDERS: Make your selection(s) from the choices in EACH section by typing an "x" and enter comments in the comment section. Please use your independent medical judgment in providing your response. This request does not imply that any particular answer is desired or expected. CLINICAL INDICATORS: (Providers should not edit this section) The medical record indicates that the patient was admitted with AF, later had a heart cath, then developed "some altered mental status changes", "basically retaining CO2", "some degree of hypoxia as noted by the ABGs" and the patient would later be placed in CCU on BIPAP. ACUITY: () Acute ( ) Acute on Chronic ( ) Chronic ( x ) Clinically unable to determine NATURE: ( ) Delirium due to general medical condition ( ) Dementia ( ) Encephalopathy ( ) Encephalopathy due to hypoxia ( ) Unconscious ( ) Transient level of awareness ( ) Comatose ( ) Locked-in State ( ) Persistent Vegetative State ( ) Other, please specify: ( ) Clinically unable to determine Please indicate the underlying cause of the altered mental status (CHECK ALL THAT APPLY): ( ) Baseline dementia ( ) Alzheimer's disease ( ) Parkinson's disease ( ) Lewy body dementia ( ) Acute stroke ( ) Late effect of stroke ( ) Reactive (from emotional stress, psychological trauma) ( ) Due to narcotics/other drugs ( ) Post procedural delirium ( ) Transient ischemic attack ( ) Generalized cerebral edema ( ) Normal pressure hydrocephalus ( ) Psychiatric illness ( ) Other, please specify: ( ) Clinically unable to determine Please indicate if there is an infection, sepsis, dehydration or specific organ failure that is causing the dementia. Be specific with clarifying the relationship between that process and the mental status change. COMMENTS: PLEASE ALSO DOCUMENT RESPONSE IN PROGRESS NOTES AND/OR DISCHARGE SUMMARY Use of terms such as suspected, likely, or probable (associated with a specific diagnosis that is being evaluated, monitored, or treated as if it exists) are acceptable and can be restated in the discharge summary if not ruled out. MTDD
[2017-05-08] MEDS: CLORAZEPATE 7.5 MG TABLET PO SCH (09:19)
[2017-05-08] MEDS: DOCUSATE SODIUM 100 MG CAPSULE PO SCH ×2 (09:19→21:14)
[2017-05-08] MEDS: methylPREDNISolone SOD SUC 40 MG/1 ML VIAL IV SCH ×2 (09:19→21:13)
[2017-05-08] MEDS: LOSARTAN 25 MG TABLET PO SCH ×2 (09:19→21:14)
[2017-05-08] MEDS: PANTOPRAZOLE 40 MG TABLET PO SCH (09:19)
[2017-05-08] MEDS: CARVEDILOL 6.25 MG TABLET PO SCH (09:20)
[2017-05-08] MEDS: DILTIAZEM CD 120 MG CAPSULE PO SCH ×2 (09:20→21:14)
[2017-05-08] MEDS: LEVOFLOXACIN INJ 500 MG in PREMIX 1 EACH IV SCH (09:21)
--- NOTE | 2017-05-08 10:06 | Pulmonology Progress Note ---
Pulmonary - PN: Subj Interval history: Patient is a 77-year-old white man that came in with rapid atrial fibrillation and respiratory distress. He apparently was in extreme distress and required BiPAP. He did have some CO2 retention. He was felt to at least have some volume overload and does have a reduced ejection fraction on echo. He says he is feeling much better today and his breathing is close to his baseline. He is not coughing up a lot of sputum now. He is not having any chest pain. He says he is comfortable and said he sat up in a chair yesterday. He has no previous history of having significant lung problems. He has not been tested for sleep apnea. When he came in he did have some CO2 retention. Yesterday he went for cardiac catheterization and was quite sleepy post-cath. His coronary arteries were okay but his ejection fraction was 25-30%. He did diurese fairly well yesterday. He did require BiPAP because of CO2 retention. He is doing much better now and is alert and talking and denies shortness of breath now. He says he has been able to cough okay. His O2 saturations are okay on nasal cannula. He wants to move to a room and try to increase his activity. Exam (Progress Note) - Constitutional Vitals: Period Temp Pulse Resp BP Sys/Smallwood Pulse Ox Last 24 Hr 96.7 F-98.3 F 71-138 14-32 89-166/63-120 83-97 Exam: General appearance: no acute distress (He is awake and talking and is in no distress now.), over weight - Head Head exam: Present: normal inspection, normocephalic - Eye Eye exam: Present: EOMI. Absent: scleral icterus Pupils: Present: RAYNA - ENT ENT exam: Present: normal exam - Neck Neck exam: Present: normal inspection. Absent: lymphadenopathy, thyromegaly - Respiratory Respiratory exam: Present: He has good breath sounds bilaterally is moving air better. He has some crackles in the bases but no wheezing. - Cardiovascular Cardiovascular exam: Present: irregular rhythm. His heart rate is controlled. Absent: gallop, JVD, systolic murmur - GI/Abdominal GI/Abdominal exam: Present: normal bowel sounds, distended, soft. Absent: organomegaly, tenderness - Extremities Exam Extremities exam: Present: edema (He has trace ankle edema). Absent: calf tenderness - Neurological Exam Neurological exam: Present: He is awake and talking and moving his extremities. - Psychiatric Psychiatric exam: Present: normal affect, normal mood - Skin Skin exam: Present: warm, dry Results - Labs CBC & BMP: 05/07/17 04:20 05/07/17 04:20 Assessment and Plan (1) Congestive heart failure due to hypertension Status: Acute Assessment and plan: The patient looks like he probably has had some heart failure but he did diurese well and is breathing better. He does have a reduced ejection fraction. He is comfortable at present. Current Visit: Yes (2) Atrial fibrillation with RVR Status: Acute Assessment and plan: The patient's heart rate is under much better control now. Current Visit: Yes (3) Acute respiratory acidosis Status: Acute Assessment and plan: The patient did come in with CO2 retention and respiratory distress. He was felt to have mainly heart failure. He did okay with BiPAP yesterday and is breathing better today. He did diurese over 4 L yesterday. His weight is down and he is breathing better. Current Visit: Yes
--- NOTE | 2017-05-08 10:20 | Cardiology Progress Note ---
I, Lorraine Love, RN, am scribing for, and in the presence of, Kristel Parnell DO 10 :18. Assessment and Plan (1) Atrial fibrillation with RVR Status: Chronic Assessment and plan: Suspect although this is newly diagnosed is not a new problem and I am related to his cardiomyopathy. See HPI. Initiate anticoagulation. Current Visit: Yes (2) Shortness of breath Status: Acute Current Visit: Yes (3) Acute respiratory acidosis Status: Acute Assessment and plan: This appears to be an acute exacerbation of a chronic process. Current Visit: Yes (4) Bilateral lower extremity edema Status: Acute Current Visit: Yes (5) Pleural effusion Status: Acute Current Visit: Yes (6) Nonischemic cardiomyopathy Status: Acute Assessment and plan: This is acute on chronic exacerbation of systolic and diastolic heart failure worsened by atrial fibrillation possibly precipitated or caused by atrial ablation rapid ventricular response. It is clearly nonischemic and decompensated. Current Visit: Yes Cardiology - PN: Subj Interval history: Sign Installer: Dr. Mayfield (new) PCP: Dr. Dominique SUMMARY: Mr. Quiroz is a 76 year old male who has never seen a civil rights attorney in the past and denies ever having had a stress test or heart cath. He denies any health problems and does not take any home medications on a regular basis other than supplements. He reports last Saturday he began to feel bloated like he was having a "gas attack". He denied any chest pain with this. He reports getting much short of breath after walking to his mailbox last week. He has had a cough and began taking cold medicine last weekend. He is not sure what he is taking or if it has a decongestant in it. He also states that he drinks a lot of coffee. When asked how much he drinks, he states "a couple of pots". He reports the symptoms continued and he saw Dr. Dominique last week in the office for further evaluation. He was found to be in atrial fibrillation and was sent to the emergency department at [facility] for further evaluation. EKG on admission showed atrial fibrillation with RVR, heart rate of 132. He was given Cardizem 10 mg IV 1 and started on a Cardizem infusion in the emergency department. He was also started on Lovenox. Labs were unremarkable. Chest x-ray showed interstitial densities in the lung bases bilaterally. Echocardiogram showed ejection fraction of 40% without significant valvular disease. Venous Doppler was negative for DVT in lower extremities. He was started on Toprol p.o. and Lasix IV. Eliquis was also added to his medication regimen. Over the weekend his dyspnea got worse and he had severe wheezing. He had to be placed on BiPAP and beta blockers were discontinued. He had heart catheterization done by Dr. Dave yesterday with the following impression and plan: 1. I do not see any significant obstructive coronary artery disease to explain the patient's cardiomyopathy. 2. Severely reduced left ventricular ejection fraction with global hypokinesis as described above. 3. Normal right iliofemoral arterial system with successful Angio-Seal closure of this vessel. 4. New onset atrial fibrillation. PLAN: The patient's cardiac catheterization shows no significant obstructive coronary artery disease. 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 Yesterday after his cath he had decreased level of consciousness and unresponsiveness. He was given Versed and peroneal in the [employer] [place] and did not respond to Narcan administration. After being given Romazicon he would respond to some verbal stimuli but still was not extremely responsive. Blood gases were checked and he was retaining CO2. After his catheter was placed on BiPAP. CT was done of his head that showed no evidence of acute process. After he was arousable he continues to have difficulty breathing was admitted to CCU for further monitoring. This morning he is seen resting in bed in no acute distress. He is awake, alert , and oriented 3. He is anxious to get to a regular room on the floor. Oxygen is in use via nasal cannula at 5 L, he states he is not short of breath. O2 sat 88%. He denies any chest pain, palpitations, or dizziness. potline monitor currently shows a atrial fibrillation with heart rates in the 120s- 130s. He is no longer on Cardizem infusion, he is on Cardizem 120 mg p.o. daily. Right groin is soft and without evidence of bleeding or hematoma, no bruit detected. He denies any pain at site or down his leg. Blood pressures been stable, currently 108/71. Patient clearly has issues with CO2 retention he has chronic CO2 retention with acute exacerbation yesterday and appears to be very sensitive to correction of his underlying hypoxemia. He is doing much better today he sitting up and talking his heart rate remains elevated his cath site looks good as documented above. I will increase his AV jevon blocking agents. I would like to avoid diltiazem as much as possible however his heart rate is extremely elevated. Hopefully as his pulmonary status improves this also will improve the loss so initiate anticoagulation. Plans for transfer to the floor are noted. I reviewed Dr. Laguerre's note. From a cardiovascular standpoint we will titrate up his ARB and his AV jevon blocking agents as much as tolerated. This is likely tachycardia induced cardiomyopathy as the patient is completely asymptomatic with a heart rate in the 130s. Exam (Progress Note) - Constitutional Vitals: Period Temp Pulse Resp BP Sys/Smallwood Pulse Ox Last 24 Hr 96.7 F-98.6 F 71-138 14-32 89-142/63-120 83-97 General appearance: no acute distress, over weight - Head Head exam: Absent: abrasion, hematoma - Eye Eye exam: Absent: periorbital swelling, laceration to eyelids - Neck Neck exam: Absent: tenderness - Respiratory Respiratory exam: Present: decreased breath sounds, other (Oxygen via nasal cannula). Absent: accessory muscle use, chest wall tenderness - Cardiovascular Cardiovascular exam: Present: irregular rhythm (PMI is laterally displaced), tachycardia - GI/Abdominal GI/Abdominal exam: Present: normal bowel sounds, distended, other (Protuberant abdomen). Absent: tenderness - Extremities Exam Extremities exam: Present: edema (Trace to bilateral lower extremity), other ( Right groin soft without evidence of bleeding or hematoma). Absent: calf tenderness - Neurological Exam Neurological exam: Present: alert, oriented X3 - Psychiatric Psychiatric exam: Present: normal affect, normal mood - Skin Skin exam: Present: warm, dry Result/EKG - Labs CBC & BMP: 05/07/17 04:20 05/07/17 04:20 Lab Results: I have reviewed the past 24 hour labs Labs: Laboratory Results - last 24 hr 05/07/17 05/07/17 05/07/17 10:14 11:00 12:05 ABG pH 7.179 L* 7.270 L ABG pCO2 103.0 H* 85.3 H* ABG pO2 108.8 H 61.7 L ABG HCO3 37.5 H 38.3 H ABG Total CO2 40.7 H 40.9 H ABG O2 Saturation 97.1 90.4 L ABG Base Excess 5.1 H 7.6 H Urine Color Straw Urine Appearance Clear Urine pH 5.0 Ur Specific [place] 1.009 Urine Protein Negative Urine Glucose (UA) Negative Urine Ketones Negative Urine Blood Negative Urine Nitrate Negative Urine Bilirubin Negative Urine Urobilinogen < 2.0 H Urine Leukocytes Negative Urine RBC 1 Hyaline Casts 1 Ur Culture Indicated? Not indicated - EKG EKG results: interpreted by me EKG shows: atrial fibrillation ISoheila Shea, , personally performed the services described in this documentation, ascribed by Lorraine Love RN in my presence, and it is both accurate and complete .
--- NOTE | 2017-05-08 10:27 | EKG Report ---
Stationary ECG Study [facility] Test Date: 05/08/2017 10:27:09 AM Pat Name: ALFA HERNANDES Department: Room: 120 Gender: M Text Transcriber: NETTIE : 1940 Requested by: Soren Queen Order Number: [id number] Reading MD: LILLIAM CHUA Intervals [place] Rate: 133 P: 999 FL: 0 QRS: 92 QRSD: 106 T: 180 QT: 266 QTc: 344 Interpretive Statements ATRIAL FIBRILLATION WITH RAPID VENTRICULAR RESPONSE WITH ABERRANT CONDUCTION OR VENTRICULAR PREMATURE COMPLEXES BORDERLINE RIGHT AXIS DEVIATION INCOMPLETE RIGHT BUNDLE BRANCH BLOCK ST DEVIATION AND MODERATE T-WAVE ABNORMALITY, CONSIDER LATERAL ISCHEMIA Electronically Signed On 05-09-17 08:13:33 CDT by LILLIAM CHUA [email or web address]
[2017-05-08] MEDS ORDERED: CARVEDILOL 12.5 MG TABLET PO ONE (10:30)
[2017-05-08] MEDS ORDERED: CARVEDILOL 12.5 MG TABLET PO SCH (10:30)
[2017-05-08] MEDS: APIXABAN 5 MG TABLET PO SCH ×2 (11:17→21:14)
[2017-05-08] MEDS: CARVEDILOL 25 MG TABLET PO SCH (21:14)
[2017-05-09] MEDS: IPRATROPIUM 500 MCG/2.5 ML NEB RESP TX SCH ×6 (03:33→23:12)
[2017-05-09] MEDS: LEVALBUTEROL 1.25 MG/3 ML NEB RESP TX SCH ×6 (03:33→23:12)
[2017-05-09 04:46] LABS: Hematocrit 39.2 VOL% (42.0-52.0); Hemoglobin 12.9 GM/DL (14.0-18.0); Immature Granulocytes % 0.9 %; Immature Granulocytes Absolute 0.07 #; Lymphocytes # 0.2 10*3/uL (1.4-4.0); Lymphocytes % 2.5 % (21.2-54.2); Mean Corpuscular HGB Conc 32.9 GM/DL (32-36); Mean Corpuscular Hemoglobin 29 PG (27-34); Mean Corpuscular Volume 86.7 FL (87-102); Mean Platelet Volume 8.9 FL (9.6-12.0); Monocytes # 0.4 10*3/uL (0.11-0.8); Monocytes % 4.6 % (1.7-12.7); Platelet Count 230 T/CUMM (130-400); Red Blood Count 4.52 MC/CUMM (3.8-5.5); Red Cell Distribution Width 13.3 % (9.3-17.3); White Blood Count 7.6 T/CUMM (4-12)
[2017-05-09 05:07] LABS: Calcium 9.1 MG/DL (8.5-10.1); Osmolality,Calculated 282.1 MOS/KG (273-304); Potassium 4.8 MMOL/L (3.5-5.1)
[2017-05-09 05:10] LABS: Hypochromasia 1+; Lymphocytes 2 % (20-55); Platelet Estimate Adequate; Segmented Neutrophils 94 % (50-85); Total Cells Counted 100
[2017-05-09 05:11] LABS: Ovalocytes Slight
--- NOTE | 2017-05-09 07:15 | EKG Report ---
Stationary ECG Study [facility] Test Date: 05/09/2017 7:15:49 AM Pat Name: ALFA HERNANDES Department: Room: 287 Gender: M Store Receiving Specialist: : 1940 Requested by: Soren Queen Order Number: [id number] Rajinder MD: CARMEN ALVAREZ Intervals [place] Rate: 86 P: 999 [place]: 0 QRS: 85 QRSD: 104 T: 236 QT: 347 QTc: 390 Interpretive Statements ATRIAL FIBRILLATION Electronically Signed On 05-09-17 15:35:44 CDT by CARMEN ALVAREZ [id number]
[2017-05-09] MEDS: DILTIAZEM CD 120 MG CAPSULE PO SCH (08:09)
[2017-05-09] MEDS: LOSARTAN 25 MG TABLET PO SCH ×2 (08:09→22:13)
[2017-05-09] MEDS: PANTOPRAZOLE 40 MG TABLET PO SCH (08:09)
[2017-05-09] MEDS: DOCUSATE SODIUM 100 MG CAPSULE PO SCH ×2 (08:10→22:12)
[2017-05-09] MEDS: APIXABAN 5 MG TABLET PO SCH ×2 (08:10→22:13)
[2017-05-09] MEDS: methylPREDNISolone SOD SUC 40 MG/1 ML VIAL IV SCH ×2 (08:10→22:13)
[2017-05-09] MEDS: CARVEDILOL 25 MG TABLET PO SCH ×2 (08:10→22:13)
--- NOTE | 2017-05-09 08:55 | Pulmonology Progress Note ---
Pulmonary - PN: Subj Interval history: Patient is a 77-year-old white man that came in with rapid atrial fibrillation and respiratory distress. He apparently was in extreme distress and required BiPAP. He did have some CO2 retention. He was felt to at least have some volume overload and does have a reduced ejection fraction on echo. He says he is feeling much better today and his breathing is close to his baseline. He is not coughing up a lot of sputum now. He is not having any chest pain. He says he is comfortable and said he sat up in a chair yesterday. He has no previous history of having significant lung problems. He has not been tested for sleep apnea. When he came in he did have some CO2 retention. Yesterday he had a fairly good day and he said he did okay last night. He is sitting up eating breakfast now. He has diuresed well and is down 7 kg. He has just a little bit of a cough. He is not having any chest pain and shortness of breath is much better. Exam (Progress Note) - Constitutional Vitals: Period Temp Pulse Resp BP Sys/Smallwood Pulse Ox Last 24 Hr 96.9 F-98.5 F 67-134 16-24 97-151/53-87 86-96 Exam: General appearance: no acute distress (He is comfortable sitting up eating breakfast now. - Head Head exam: Present: normal inspection, normocephalic - Eye Eye exam: Present: EOMI. Absent: scleral icterus Pupils: Present: RAYNA - ENT ENT exam: Present: normal exam - Neck Neck exam: Present: normal inspection. Absent: lymphadenopathy, thyromegaly - Respiratory Respiratory exam: Present: He has good breath sounds bilaterally is moving air better. His lungs sound clear and he could have some very minimal effusions. It is hard to tell at present. I do not think they are very large. - Cardiovascular Cardiovascular exam: Present: irregular rhythm. His heart rate is controlled. Absent: gallop, JVD, systolic murmur - GI/Abdominal GI/Abdominal exam: Present: normal bowel sounds, distended, soft. Absent: organomegaly, tenderness - Extremities Exam Extremities exam: Present: He does not have any leg swelling now and no tenderness. - Neurological Exam Neurological exam: Present: He is sitting up and looks alert and comfortable. 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 He does have a reduced ejection fraction. His weight is down 7 kg. His breathing is much better. Current Visit: Yes (2) Atrial fibrillation with RVR Status: Chronic Assessment and plan: The patient's heart rate is irregular but under good control. Current Visit: Yes (3) Acute respiratory acidosis Status: Acute Assessment and plan: The patient did come in with CO2 retention and respiratory distress. He was felt to have mainly heart failure. He is on low-flow oxygen and he feels like he is better. His weight is down 7 kg. His lungs sound much clearer. He will probably get a sleep study as an outpatient. Overall he is much improved. Current Visit: Yes
--- NOTE | 2017-05-09 09:23 | Family Practice Progress Note ---
Family Practice - PN: Subj Interval history: Seen today. Doing significantly better. He remains on BiPAP at nighttime and low dose oxygen during the daytime. He is alert and oriented now talking coherently and in no acute distress without any chest pain or shortness of breath or abdominal discomfort. He is eating well. Less than 1+ edema in bilateral lower extremities. Plan on a sleep study today to give him something to go home with. Exam (Progress Note) - Constitutional Vitals: Period Temp Pulse Resp BP Sys/Smallwood Pulse Ox Last 24 Hr 96.9 F-98.5 F 67-106 16-22 97-151/53-87 86-96 Exam: Alert and responsive this morning, talking much more coherently. Neck is supple trachea midline. Is sitting up in bed with oxygen nasal cannula , tolerating well Cardia vascular rate is irregular no gallop or rub Lungs few basilar rales. Abdomen soft and nontender. This is a normal body habitus Extremities 1+ edema bilateral lower extremities. Results - Labs CBC & BMP: 05/09/17 04:06 05/09/17 04:06 Assessment and Plan (1) Shortness of breath Status: Acute Assessment and plan: O2 prn and monitor Oxygen Sats 05/03/17. Patient is on oxygen and this is working well. When he starts talking he gets a little bit tachypneic 05/04/2017: The patient is working a little bit harder for breathing and also is tachypneic. We are going to initiate the above and get pulmonary involved. His atrial fibrillation rate has decreased 05/06/2017: Scheduled for cath tomorrow hopefully the patient will continue to tolerate BiPAP and avoid intubation. I do agree that he may be needing a sleep study 05/07/2017 patient became more obtunded and short of breath and we moved him to CCU for close observation will continue BiPAP at this time with pulmonary evaluation 05/08/2017 patient more alert this morning now 6 L O2 will transfer to telemetry 05/09/2017: This is improved on his BiPAP. He has been diuresed and he is getting oxygen 2 L nasal cannula present Current Visit: Yes (2) Bilateral lower extremity edema Status: Acute Assessment and plan: Monitor vital I/O . 616's 17: Edema is much improved at this time 05/06/1970 edema continues to be improved 05/07/1970 edema has improved but he still has less than 1+ edema bilateral lower extremities. Was given Lasix. 05/08/2017 decreased edema in feet we will continue to monitor 05/10/2017: This is resolving Current Visit: Yes (3) Atrial fibrillation with RVR Status: Chronic Assessment and plan: Admit Monitor Dilatizem , Lovenox consult Cardiology . 05/03/17: Continues in atrial fibrillation but the rate is controlled at this time. Patient not having any chest pain 05/06/2017: Was in A. fib yesterday but rate was well controlled. Will monitor. Today remains in A. fib 05/07/2017 atrial fibrillation with rate controlled at this time. We are continuing on current regimen 05/08/2017 patient continues in atrial fibrillation on IV Cardizem Current Visit: Yes
--- NOTE | 2017-05-09 12:52 | Sleep Medicine Consult ---
Assessment and Plan (1) Unspecified sleep apnea Status: Acute Assessment and plan: This patient certainly could have sleep apnea. He does have some symptoms of snoring and with his comorbidities, needs to be excluded. However, he is not in good shape with his significant health issues and recent respiratory failure to consider for HST evaluation. He currently is requiring supplemental oxygen and this will be a less than ideal situation to evaluate him with HST. I would recommend outpatient sleep study after discharge. If he improves significantly during his hospital stay and can undergo HST without supplemental oxygen, this could be done. If he is discharged on supplemental oxygen, I would recommend sleep study with O2 therapy as an outpatient. BiPAP cannot be prescribed for obstructive sleep apnea until diagnosis of sleep apnea is obtained. If it is felt that positive pressure support is needed from a respiratory standpoint, he may have a diagnosis from a pulmonary standpoint that could suffice but I will defer that to pulmonary medicine. Current Visit: Yes History of Present Illness Chief complaint: Sleep apnea History of present illness: Mr. Quiroz is a 77 year old male admitted with shortness of breath chest pain. He was found to have heart disease and apparently some pneumonia. He underwent heart cath and had postop respiratory failure and required BiPAP therapy. There is concern for sleep apnea. He does have a history of snoring and has been witnessed to stop breathing in his sleep. His states that she is never noticed him to do this but his son did so when they spent some time together on vacation last year. He does have some symptoms of sleepiness during the day. He does have an [place] sleepiness score of only 9 but does have a stop bang score of 5. He does have nocturia but no issues with restless legs or leg jerks. He states that he plays golf as a hobby and does so at [place]. Home Medications Medication Instructions Recorded Confirmed Type Multivit-Min/FA/Lycopen/Lutein 1 each PO QAM 05/02/17 05/02/17 History [Centrum Silver Tablet] [place]-3/Dha/Epa/Fish Oil [Fish Oil 1 each PO QAM 05/02/17 05/02/17 History 1,000 mg Softgel] Potassium 99 mg PO QAM 05/02/17 05/02/17 History Allergies Allergy/AdvReac Type Severity Reaction Status Date / Time Penicillins Allergy RASH Verified 05/02/17 13:47 Review of systems: Otherwise unremarkable from a sleep standpoint. Exam (Pulmonay) H&P - Constitutional Vitals: Period Temp Pulse Resp BP Sys/Smallwood Pulse Ox Last 24 Hr 96.9 F-98.5 F 62-106 16-22 97-151/53-87 86-100 Exam: He is alert and responsive in no acute distress. Pupils equal round reactive to light and accommodation. Extraocular movements intact. Oropharynx with a class III Mallampati exam. Neck supple without adenopathy or thyromegaly. Chest with fair air movement no focal wheeze rhonchi or rales. Cardiac exam reveals a regular rhythm without murmur or gallop. Abdomen soft nontender without palpable hepatosplenomegaly or mass. Extremities without increased clubbing, cyanosis, or edema. Neurologically, he is grossly intact. He moves all extremities with good strength. Medical,Surgical,& Family Hx - Medical History Cardio: No history of: MA - Surgical History HEENT Surgeries: Surgical HX of: Eye Surgery (Bilateral cataracts) - Family History Family History: Reports;: Family Heart Disease, Family Hypertension - Social History Smoking Status: Former smoker (Ports he quit about 50 years ago) Frequency of Alcohol Use: None Type of Drug Use: None Results - Labs CBC & BMP: 05/09/17 04:06 05/09/17 04:06 Lab Results: I have reviewed the past 24 hour labs Labs: TSH has not been done from my review of laboratory evaluation and I recommend hypothyroidism be excluded if not previously done.
--- NOTE | 2017-05-09 15:56 | Cardiology Progress Note ---
Kate Polanco April RN, am scribing for, and in the presence of, Kristel Parnell, 15 :55. Assessment and Plan (1) Atrial fibrillation with RVR Status: Chronic Current Visit: Yes (2) Shortness of breath Status: Acute Current Visit: Yes (3) Acute respiratory acidosis Status: Acute Current Visit: Yes (4) Bilateral lower extremity edema Status: Acute Current Visit: Yes (5) Hyponatremia Status: Acute Current Visit: Yes (6) Pleural effusion Status: Acute Current Visit: Yes Cardiology - PN: Subj Interval history: Senior Instructor: Dr. Mayfield (new) PCP: Dr. Dominique SUMMARY: Mr. 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 He denies any health problems and does not take any home medications on a regular basis other than supplements. He reports last Saturday he began to feel bloated like he was having a "gas attack". He denied any chest pain with this. He reports getting much short of breath after walking to his mailbox last week. He has had a cough and began taking cold medicine last weekend. He is not sure what he is taking or if it has a decongestant in it. He also states that he drinks a lot of coffee. When asked how much he drinks, he states "a couple of pots". He reports the symptoms continued and he saw Dr. Dominique last week in the office for further evaluation. He was found to be in atrial fibrillation and was sent to the emergency department at [facility] for further evaluation. EKG on admission showed atrial fibrillation with RVR, heart rate of 132. He was given Cardizem 10 mg IV 1 and started on a Cardizem infusion in the emergency department. He was also started on Lovenox. Labs were unremarkable. Chest x-ray showed interstitial densities in the lung bases bilaterally. Echocardiogram showed ejection fraction of 40% without significant valvular disease. Venous Doppler was negative for DVT in lower extremities. He was started on Toprol p.o. and Lasix IV. Eliquis was also added to his medication regimen. Over the weekend his dyspnea got worse and he had severe wheezing. He had to be placed on BiPAP and beta blockers were discontinued. Heart cath in 05/07/[address] Dave showed no significant obstructive coronary artery disease. 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 05/09/2017: Mr. Quiroz is seen in the telemetry unit in no acute distress. He denies any chest pain, palpitations, or dizziness. Oxygen is in use via nasal cannula and he reports he is at his normal state of breathing. EKG this morning showed A. fib with heart rate of 86. 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 He is on Cardizem 120 mg p.o. twice daily. He has also been started on Eliquis 5 mg twice daily. Vital signs have been stable, this morning blood pressure is 151/87 and now it is in the 90s systolic. He states that he feels quite good. He has no new complaints. He sitting up in the chair. Exam (Progress Note) - Constitutional Vitals: Period Temp Pulse Resp BP Sys/Smallwood Pulse Ox Last 24 Hr 96.9 F-98.5 F 67-106 16-22 97-151/53-87 86-96 General appearance: no acute distress, over weight - Head Head exam: Absent: abrasion, hematoma - Eye Eye exam: Absent: periorbital swelling, laceration to eyelids - Neck Neck exam: Absent: tenderness - Respiratory Respiratory exam: Present: clear to auscultation bilaterally. Absent: accessory muscle use, chest wall tenderness - Cardiovascular Cardiovascular exam: Present: irregular rhythm - GI/Abdominal GI/Abdominal exam: Present: normal bowel sounds, soft. Absent: distended, tenderness - Extremities Exam Extremities exam: Present: edema (Trace to bilateral lower extremities) - Neurological Exam Neurological exam: Present: alert, oriented X3 - Psychiatric Psychiatric exam: Present: normal affect, normal mood - Skin Skin exam: Present: warm, dry Result/EKG - Labs CBC & BMP: 05/09/17 04:06 05/09/17 04:06 Lab Results: I have reviewed the past 24 hour labs Labs: Laboratory Results - last 24 hr 05/09/17 05/09/17 04:06 04:06 WBC 7.6 D RBC 4.52 Hgb 12.9 L Hct 39.2 L MCV 86.7 L MCH 29 MCHC 32.9 RDW 13.3 Plt Count 230 D MPV 8.9 L Neut % (Auto) 92.0 H Lymph % (Auto) 2.5 L [place] % (Auto) 4.6 Eos % (Auto) 0.0 Baso % (Auto) 0.0 Neut # (Auto) 7.0 Lymph # (Auto) 0.2 L [place] # (Auto) 0.4 Eos # (Auto) 0.0 Baso # (Auto) 0.0 Total Counted 100 Immature Gran % 0.9 Nucleated RBC % 0.0 Immature Gran # 0.07 Segmented Neutrophils 94 H Lymphocytes 2 L Monocytes 4 Nucleated RBCs # 0.00 Platelet Estimate Adequate Hypochromasia 1+ Ovalocytes Slight Morphology Comment Sodium 135 L Potassium 4.8 Chloride 95 L Carbon Dioxide 39 H Anion Gap 5.8 BUN 34 H Creatinine 0.80 GFR Calculation 108 BUN/Creatinine Ratio 42.00 H Glucose 181 H Calculated Osmolality 282.1 Calcium 9.1 - EKG EKG results: interpreted by me EKG shows: atrial fibrillation Soheila Polanco Shea, DO, personally performed the services described in this documentation, ascribed by Lorraine Love RN in my presence, and it is both accurate and complete [id number] .
[2017-05-10] MEDS: LEVALBUTEROL 1.25 MG/3 ML NEB RESP TX SCH ×3 (03:04→10:47)
[2017-05-10] MEDS: IPRATROPIUM 500 MCG/2.5 ML NEB RESP TX SCH ×3 (03:04→10:47)
[2017-05-10 05:50] LABS: Hematocrit 39.4 VOL% (42.0-52.0); Hemoglobin 13.4 GM/DL (14.0-18.0); Immature Granulocytes % 0.5 %; Immature Granulocytes Absolute 0.04 #; Lymphocytes # 0.2 10*3/uL (1.4-4.0); Lymphocytes % 2.7 % (21.2-54.2); Mean Corpuscular Hemoglobin 29 PG (27-34); Mean Corpuscular Volume 85.8 FL (87-102); Monocytes # 0.3 10*3/uL (0.11-0.8); Monocytes % 4.1 % (1.7-12.7); Neutrophils # 7.5 10*3/uL (1.4-7.4); Neutrophils % 92.7 % (38.7-73.9); Platelet Count 213 T/CUMM (130-400); Red Blood Count 4.59 MC/CUMM (3.8-5.5); Red Cell Distribution Width 13.2 % (9.3-17.3); White Blood Count 8.1 T/CUMM (4-12)
[2017-05-10 06:12] LABS: Calcium 8.9 MG/DL (8.5-10.1); Potassium 4.9 MMOL/L (3.5-5.1)
[2017-05-10 06:40] LABS: Segmented Neutrophils 98 % (50-85); Total Cells Counted 100
[2017-05-10 06:41] LABS: Hypochromasia 2+; Microcytosis 1+; Platelet Estimate Adequate
[2017-05-10] MEDS: DILTIAZEM INJ 100 MG in SODIUM CHLORIDE 0.9% 100 ML IV SCH (07:14)
--- NOTE | 2017-05-10 08:33 | Pulmonology Progress Note ---
Pulmonary - PN: Subj Interval history: Patient is a 77-year-old white man that came in with rapid atrial fibrillation and respiratory distress. He apparently was in extreme distress and required BiPAP. He did have some CO2 retention. He was felt to at least have some volume overload and does have a reduced ejection fraction on echo. He says he is feeling much better today and his breathing is close to his baseline. He is not coughing up a lot of sputum now. He is not having any chest pain. He says he is comfortable and said he sat up in a chair yesterday. He has no previous history of having significant lung problems. He has not been tested for sleep apnea. When he came in he did have some CO2 retention. He says he has felt well overnight and is breathing better. He has diuresed fairly well and his weight is down. He has a minimal cough now. Overall he is doing much better. Exam (Progress Note) - Constitutional Vitals: Period Temp Pulse Resp BP Sys/Smallwood Pulse Ox Last 24 Hr 97 F-99 F 76-104 16-20 96-138/67-91 87-100 Exam: General appearance: no acute distress (He is comfortable sitting up eating breakfast now. He is not having any distress at all.) - Head Head exam: Present: normal inspection, normocephalic - Eye Eye exam: Present: EOMI. Absent: scleral icterus Pupils: Present: RAYNA - ENT ENT exam: Present: normal exam - Neck Neck exam: Present: normal inspection. Absent: lymphadenopathy, thyromegaly - Respiratory Respiratory exam: Present: He has good breath sounds bilaterally and his lungs sound fairly clear now. I do not hear any wheezing. - Cardiovascular Cardiovascular exam: Present: irregular rhythm. His heart rate is controlled. Absent: gallop, JVD, systolic murmur - GI/Abdominal GI/Abdominal exam: Present: normal bowel sounds, distended, soft. Absent: organomegaly, tenderness - Extremities Exam Extremities exam: Present: He does not have any leg swelling now and no tenderness. - Neurological Exam Neurological exam: Present: He is sitting up and looks alert and comfortable. 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 He does have a reduced ejection fraction. His weight is down 7 kg. His breathing is much better. His volume status looks stable at present. Current Visit: Yes (2) Atrial fibrillation with RVR Status: Chronic Assessment and plan: The patient's heart rate is irregular but under good control. Current Visit: Yes (3) Acute respiratory acidosis Status: Acute Assessment and plan: The patient did come in with CO2 retention and respiratory distress. He was felt to have mainly heart failure. He is on low-flow oxygen and he feels like he is better. His weight is down 7 kg. His lungs sound much clearer. He can probably go home today and will check PFTs in the office. Current Visit: Yes
[2017-05-10] MEDS: DOCUSATE SODIUM 100 MG CAPSULE PO SCH (08:42)
[2017-05-10] MEDS: CARVEDILOL 25 MG TABLET PO SCH (08:42)
[2017-05-10] MEDS: APIXABAN 5 MG TABLET PO SCH (08:43)
[2017-05-10] MEDS: LOSARTAN 25 MG TABLET PO SCH (08:43)
[2017-05-10] MEDS: PANTOPRAZOLE 40 MG TABLET PO SCH (08:43)
[2017-05-10] MEDS: methylPREDNISolone SOD SUC 40 MG/1 ML VIAL IV SCH (08:45)
[2017-05-10] MEDS ORDERED: DILTIAZEM CD 120 MG CAPSULE PO SCH (09:00)
[2017-05-10] MEDS ORDERED: predniSONE 10 MG TABLET PO SCH (09:00)
--- NOTE | 2017-05-10 09:27 | Discharge Summary ---
Hospital Course - Hospital Course Hospital Course: Patient seen this morning he is doing much better sitting up in the chair with 2 L O2 nasal cannula. He does desat down to 87 we will going to try to get him oxygen at home. Patient came to the hospital with severe respiratory distress and feeling "bloated". He did not ever have any chest pain prior to or during hospitalization, but he did have worsening dyspnea which ultimately required BiPAP therapy and significant diuresis. (Patient almost got bad enough to require intubation, after going into respiratory distress, and was put in CCU temporarily, but this was ultimately avoided.) He was seen in concert by pulmonary and cardiology. He was as mentioned put on BiPAP and was felt a cardiac cath was necessary to rule out significant cardiomyopathy and coronary artery disease causing his symptoms. Patient was noted to be in atrial fibrillation with rapid ventricular response. This was brought under control with medication. Echocardiogram did reveal an ejection fraction of 40% without significant valvular disease. The cath revealed no significant coronary artery occlusion. Other studies included a venous Doppler was negative. Nonetheless, patient has improved and we now have him on O2 2 L nasal cannula. I do believe that he is going to require home O2 at least as needed as his oxygen sats do drop down into 87% periodically. We are going to get him set up for this and he needs to be set up for an outpatient obstructive sleep apnea study. We will get this done as soon as possible. In addition is now on a blood thinner because his atrial fibrillation is fairly chronic and has not converted. The rate is controlled but will be on Eliquis now. Plan on seeing him in a couple days after discharge. Diagnosis - Discharge Diagnosis (1) Shortness of breath Status: Acute (2) Bilateral lower extremity edema Status: Acute (3) Atrial fibrillation with RVR Status: Chronic Discharge Plan - Discharge Data Disposition: Home Health Service Condition at Discharge: Stable Discharge Diet: heart healthy, low fat, low cholesterol Activity: resume usual activities as tolerated Hygiene: no restrictions Weight Bearing at Discharge: weight bear as tolerated Contact your physician if you experience:: Shortness of breath - Discharge Medications New Carvedilol [Coreg] 25 mg PO BID #60 tablet Diltiazem Cd Cap [Cardizem CD] 120 mg PO DAILY #30 capsule Losartan [Cozaar] 25 mg PO BID #60 tablet predniSONE TAB [PredniSONE] 5 mg PO DIRECTED #20 tablet Albuterol Inhaler [Proventil Inhaler] 2 puff INH Q6H PRN #1 inhaler PRN Reason: Shortness Of Breath/Wheezing Apixaban [Eliquis] 5 mg PO BID #60 tablet Continue [place]-3/Dha/Epa/Fish Oil [Fish Oil 1,000 mg Softgel] 1 each PO QAM Potassium 99 mg PO QAM Multivit-Min/FA/Lycopen/Lutein [Centrum Silver Tablet] 1 each PO QAM - Follow Up or Referral Follow Up: Chacorta Dominique DO [Primary Care Provider] - 2 Weeks (TCM) Daryl Laguerre MD [Physician] - 2 Weeks Bao Harris MD [Physician] - 2 Weeks (patiets needs to take all meds because Cardiology needs to discussif he is to continue all new Cardiac meds and please send a report to Dr Dominique office for verification) - Forms/Instructions Additional Discharge Instructions: Patient needs [facility] to set up for Home Oxygen on discharge Exam - Constitutional Vitals: Period Temp Pulse Resp BP Sys/Smallwood Pulse Ox Last 24 Hr 97 F-99 F 76-104 16-20 96-138/67-91 87-100 Discharge Results Labs on day of discharge: Labs from last 24 hours 05/10/17 05/10/17 05:23 05:23 WBC 8.1 RBC 4.59 Hgb 13.4 L Hct 39.4 L MCV 85.8 L MCH 29 MCHC 34.0 RDW 13.2 Plt Count 213 MPV 9.0 L Neut % (Auto) 92.7 H Lymph % (Auto) 2.7 L [place] % (Auto) 4.1 Eos % (Auto) 0.0 Baso % (Auto) 0.0 Neut # (Auto) 7.5 H Lymph # (Auto) 0.2 L [place] # (Auto) 0.3 Eos # (Auto) 0.0 Baso # (Auto) 0.0 Total Counted 100 Immature Gran % 0.5 Nucleated RBC % 0.0 Immature Gran # 0.04 Segmented Neutrophils 98 H Monocytes 2 Nucleated RBCs # 0.00 Platelet Estimate Adequate Hypochromasia 2+ Microcytosis 1+ Sodium 136 Potassium 4.9 Chloride 95 L Carbon Dioxide 38 H Anion Gap 7.9 BUN 27 H Creatinine 0.70 GFR Calculation 114 BUN/Creatinine Ratio 38.00 H Glucose 184 H Calculated Osmolality 281.0 Calcium 8.9 DS: Provider Date of admission: 05/02/17 15:14 Primary care physician: Chacorta Dominique DO Attending physician on admission: Chacorta Dominique DO Consults: 05/02/17 16:35 Consult to Case Mgmt/Social Srvs [CONS] Routine Reason for Case Mgmt/Social Srvs: Discharge Planning Home Health Consult to Physician [CONS] Routine Comment: a fib with rvr Consulting Provider: Rg Mayfield Person Notified: Arianna VILLANUEVA NP Date Notified: 05/02/17 Time Notified: 16:38 05/04/17 11:11 Consult to Physician [CONS] Routine Comment: Consulting Provider: Daryl Laguerre 05/07/17 15:34 Consult to Sleep Center [CONS] Routine Reason for Sleep Center: Sleep Center Physician Consult Comment: EVAL FOR C-PAP, BP-PAP HOME USE Discharging clinician: Chacorta Dominique DO
--- NOTE | 2017-05-10 09:36 | Cardiology Progress Note ---
Kate Polanco April, RN, am scribing for, and in the presence of, Kristel ParnellDO 09 :36. Assessment and Plan (1) Atrial fibrillation with RVR Status: Chronic Assessment and plan: The patient has atrial fibrillation it is well controlled please see HPI. Current Visit: Yes (2) Shortness of breath Status: Acute Current Visit: Yes (3) Acute respiratory acidosis Status: Acute Current Visit: Yes (4) Bilateral lower extremity edema Status: Acute Current Visit: Yes (5) Hyponatremia Status: Acute Current Visit: Yes (6) Pleural effusion Status: Acute Current Visit: Yes Cardiology - PN: Subj Interval history: Inspector Set Up And Lay Out: Dr. Mayfield (new) PCP: Dr. Dominique SUMMARY: Mr. 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 He denies any health problems and does not take any home medications on a regular basis other than supplements. He reports last Saturday he began to feel bloated like he was having a "gas attack". He denied any chest pain with this. He reports getting much short of breath after walking to his mailbox last week. He has had a cough and began taking cold medicine last weekend. He is not sure what he is taking or if it has a decongestant in it. He also states that he drinks a lot of coffee. When asked how much he drinks, he states "a couple of pots". He reports the symptoms continued and he saw Dr. Dominique last week in the office for further evaluation. He was found to be in atrial fibrillation and was sent to the emergency department at [facility] for further evaluation. EKG on admission showed atrial fibrillation with RVR, heart rate of 132. He was given Cardizem 10 mg IV 1 and started on a Cardizem infusion in the emergency department. He was also started on Lovenox. Labs were unremarkable. Chest x-ray showed interstitial densities in the lung bases bilaterally. Echocardiogram showed ejection fraction of 40% without significant valvular disease. Venous Doppler was negative for DVT in lower extremities. He was started on Toprol p.o. and Lasix IV. Eliquis was also added to his medication regimen. Over the weekend his dyspnea got worse and he had severe wheezing. He had to be placed on BiPAP and beta blockers were discontinued. Heart cath in 05/07/[address] Dave showed no significant obstructive coronary artery disease. 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 05/10/2017: Mr. Quiroz is seen sitting up in chair in no acute distress. He denies any chest pain or palpitations. Oxygen is in use via nasal cannula, he states his breathing is doing good. 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 He is to be discharged home today. We will have him follow-up with Dr. Mayfield in 2 weeks with a CBC. I discussed with the the importance of checking his blood pressure and heart rate. He has been completely asymptomatic while having significant tachycardia. I have asked him to purchase a sphygmomanometer and I recommended specifically [employer] brand keep a blood pressure log and heart rate log checking daily. She is to call [facility] if heart rate is greater than 120 or less than 60. Exam (Progress Note) - Constitutional Vitals: Period Temp Pulse Resp BP Sys/Smallwood Pulse Ox Last 24 Hr 97 F-99 F 76-104 16-20 96-138/67-91 87-100 General appearance: no acute distress, over weight - Head Head exam: Absent: abrasion, hematoma - Eye Eye exam: Absent: periorbital swelling, laceration to eyelids - Respiratory Respiratory exam: Present: clear to auscultation bilaterally (Better effort). Absent: accessory muscle use, chest wall tenderness - Cardiovascular Cardiovascular exam: Present: irregular rhythm (Right is controlled today at about 90) - GI/Abdominal GI/Abdominal exam: Present: normal bowel sounds, soft. Absent: distended, tenderness - Extremities Exam Extremities exam: Absent: edema - Neurological Exam Neurological exam: Present: alert, oriented X3 - Psychiatric Psychiatric exam: Present: normal affect, normal mood - Skin Skin exam: Present: warm, dry Result/EKG - Labs CBC & BMP: 05/10/17 05:23 05/10/17 05:23 Lab Results: I have reviewed the past 24 hour labs Labs: Laboratory Results - last 24 hr 05/10/17 05/10/17 05:23 05:23 WBC 8.1 RBC 4.59 Hgb 13.4 L Hct 39.4 L MCV 85.8 L MCH 29 MCHC 34.0 RDW 13.2 Plt Count 213 MPV 9.0 L Neut % (Auto) 92.7 H Lymph % (Auto) 2.7 L [place] % (Auto) 4.1 Eos % (Auto) 0.0 Baso % (Auto) 0.0 Neut # (Auto) 7.5 H Lymph # (Auto) 0.2 L [place] # (Auto) 0.3 Eos # (Auto) 0.0 Baso # (Auto) 0.0 Total Counted 100 Immature Gran % 0.5 Nucleated RBC % 0.0 Immature Gran # 0.04 Segmented Neutrophils 98 H Monocytes 2 Nucleated RBCs # 0.00 Platelet Estimate Adequate Hypochromasia 2+ Microcytosis 1+ Sodium 136 Potassium 4.9 Chloride 95 L Carbon Dioxide 38 H Anion Gap 7.9 BUN 27 H Creatinine 0.70 GFR Calculation 114 BUN/Creatinine Ratio 38.00 H Glucose 184 H Calculated Osmolality 281.0 Calcium 8.9 - EKG EKG results: interpreted by me EKG shows: atrial fibrillation Specialty Discharge - Follow Up or Referrals Follow up with: Bao Harris MD [Physician] - 2 Weeks (patiets needs to take all meds because Cardiology needs to discussif he is to continue all new Cardiac meds and please send a report to Dr Dominique office for verification) Daryl Laguerre MD [Physician] - 2 Weeks Rg Mayfield MD [Physician] - 2 Weeks (with CBC) Chacorta Dominique DO [Primary Care Provider] - 2 Weeks (TCM) Soheila Polanco Shea, DO, personally performed the services described in this documentation, ascribed by Lorraine Love RN in my presence, and it is both accurate and complete .
--- NOTE | 2017-05-10 10:18 | Sleep Medicine Progress Note ---
Assessment and Plan (1) Unspecified sleep apnea Status: Acute Assessment and plan: Patient is being discharged today and will be set up for outpatient sleep study for diagnosis of possible sleep apnea. Follow-up will be in sleep clinic. Thank you for this consult. Current Visit: Yes Sleep Medicine Subjective Interval history: Patient appears to be improving. He is breathing more comfortably but does remain on O2 therapy. He slept well last night. I explained to him and his that we will set him up for outpatient sleep clinic evaluation with polysomnography. We will try to get this done as soon as possible. Exam (Progress Note) - Constitutional Vitals: Period Temp Pulse Resp BP Sys/Smallwood Pulse Ox Last 24 Hr 97 F-99 F 76-104 16-20 96-138/67-91 87-100 Exam: He is alert and responsive in no acute distress. Pupils equal round reactive to light and accommodation. Extraocular movements intact. Oropharynx with a class IV Mallampati exam. Neck supple without adenopathy or thyromegaly. Chest with good air movement and no focal wheeze or rhonchi. Cardiac exam reveals regular rhythm without murmur or gallop. Abdomen soft nontender but obese. Extremities with trace edema. Neurologically, he is grossly intact. He moves all extremities with good strength and answers questions appropriately. Results - Labs CBC & BMP: 05/10/17 05:23 05/10/17 05:23 Lab Results: I have reviewed the past 24 hour labs Specialty Discharge - Follow Up or Referrals Follow up with: Bao Harris MD [Physician] - 2 Weeks (patiets needs to take all meds because Cardiology needs to discussif he is to continue all new Cardiac meds and please send a report to Dr Dominique office for verification) Daryl Laguerre MD [Physician] - 2 Weeks Rg Mayfield MD [Physician] - 2 Weeks (with CBC) Chacorta Dominique DO [Primary Care Provider] - 2 Weeks (TCM)
[2017-05-10 11:46] VITALS: BP 116/64
== END 2017-05-10 12:26 | disposition home health service (06) | DRG 286 ==
LOC: N.ED 13:45 → N.EDINP 15:14 → N.TELES 16:20 → N.CC 05-07 11:01 → N.TELEN 05-08 10:45 → N.TELES 05-08 10:45
PROVIDERS: ADMIT Family Medicine; ATTEND Family Medicine
PROC: CLCCHCL (ICD-10-PCS; 2017-05-07 07:45)

== ENCOUNTER 2019-01-20 10:24 | Inpatient (IN) ==
[~2019-01-20 10:24] MED LIST: ALBUTEROL/IPRATROPIUM 3 ML NEB RESP TX SCH
[2019-01-20 12:57] LABS: Basophils % 0.2 % (0.0-0.8); Eosinophils % 0.1 % (0.00-10.9); Hematocrit 35.3 VOL% (42.0-52.0); Immature Granulocytes % 0.6 %; Immature Granulocytes Absolute 0.08 #; Lymphocytes # 0.7 10*3/uL (1.4-4.0); Lymphocytes % 5.1 % (21.2-54.2); Mean Corpuscular HGB Conc 36.8 GM/DL (32-36); Mean Corpuscular Hemoglobin 29 PG (27-34); Mean Corpuscular Volume 78.8 FL (87-102); Mean Platelet Volume 8.6 FL (9.6-12.0); Neutrophils # 11.2 10*3/uL (1.4-7.4); Platelet Count 282 T/CUMM (130-400); Red Blood Count 4.48 MC/CUMM (3.8-5.5); Red Cell Distribution Width 12.7 % (9.3-17.3)
[2019-01-20 13:12] LABS: Albumin 3.6 G/DL (3.4-5.0); Bilirubin,Total 1.1 MG/DL (0.2-1.0); Calcium 8.8 MG/DL (8.5-10.1); Osmolality,Calculated 238.3 MOS/KG (273-304); Potassium 4.1 MMOL/L (3.5-5.1)
[2019-01-20] MEDS ORDERED: SODIUM CHLORIDE 0.9% 1,000 ML IV STA (13:15)
[2019-01-20] MEDS ORDERED: LEVOFLOXACIN INJ 750 MG in PREMIX 1 EACH IV STA (14:46)
[2019-01-20] MEDS ORDERED: LEVOFLOXACIN INJ 150 ML IV ONE (14:49)
[2019-01-20] MEDS ORDERED: ACETAMINOPHEN 325 MG TABLET PO PRN (15:51)
[2019-01-20] MEDS ORDERED: CARVEDILOL 25 MG TABLET PO SCH ×4 (16:30→21:00)
[2019-01-20] MEDS: ONDANSETRON 4 MG/2 ML VIAL IV PRN ×2 (16:43→22:05)
[2019-01-20] MEDS: DOCUSATE SODIUM 100 MG CAPSULE PO SCH (20:05)
[2019-01-20] MEDS ORDERED: MELATONIN 3 MG TABLET PO PRN ×2 (21:55→22:30)
[2019-01-21] MEDS: ALBUTEROL/IPRATROPIUM 3 ML NEB RESP TX SCH ×4 (01:01→19:01)
[2019-01-21] MEDS: ONDANSETRON 4 MG/2 ML VIAL IV PRN (02:41)
[2019-01-21 04:47] LABS: Basophils % 0.2 % (0.0-0.8); Hematocrit 32.3 VOL% (42.0-52.0); Hemoglobin 11.6 GM/DL (14.0-18.0); Immature Granulocytes % 0.5 %; Immature Granulocytes Absolute 0.08 #; Lymphocytes # 0.5 10*3/uL (1.4-4.0); Lymphocytes % 3.2 % (21.2-54.2); Mean Corpuscular HGB Conc 35.9 GM/DL (32-36); Mean Corpuscular Hemoglobin 29 PG (27-34); Mean Platelet Volume 8.5 FL (9.6-12.0); Monocytes # 1.4 10*3/uL (0.11-0.8); Monocytes % 8.8 % (1.7-12.7); Neutrophils # 14.3 10*3/uL (1.4-7.4); Neutrophils % 87.3 % (38.7-73.9); Platelet Count 241 T/CUMM (130-400); Red Blood Count 4.04 MC/CUMM (3.8-5.5); Red Cell Distribution Width 12.7 % (9.3-17.3); White Blood Count 16.3 T/CUMM (4-12)
[2019-01-21 05:15] LABS: Lymphocytes 3 % (20-55); Segmented Neutrophils 93 % (50-85); Total Cells Counted 100
[2019-01-21 05:16] LABS: Hypochromasia 1+; Ovalocytes Slight; Platelet Estimate Adequate
[2019-01-21 05:17] LABS: Microcytosis Slight
[2019-01-21 05:28] LABS: Albumin 3.1 G/DL (3.4-5.0); Bilirubin,Total 1.5 MG/DL (0.2-1.0); Calcium 8.5 MG/DL (8.5-10.1); Osmolality,Calculated 238.3 MOS/KG (273-304); Total Protein 6.7 G/DL (6.4-8.3)
[2019-01-21] MEDS: PANTOPRAZOLE 40 MG TABLET PO SCH (12:41)
[2019-01-21] MEDS: DOCUSATE SODIUM 100 MG CAPSULE PO SCH ×2 (12:41→20:53)
[2019-01-21] MEDS: OMEGA 3 ACID ETHYL ESTERS 1 GM CAPSULE PO SCH (12:41)
[2019-01-21] MEDS: MULTIVITAMIN (CENTRUM) TABLET PO SCH (12:42)
[2019-01-21] MEDS: CARVEDILOL 25 MG TABLET PO SCH (12:42)
[2019-01-21] MEDS: DILTIAZEM CD 120 MG CAPSULE PO SCH (12:42)
[2019-01-21] MEDS: SIMVASTATIN 10 MG TABLET PO SCH (12:42)
[2019-01-21] MEDS ORDERED: ALBUTEROL 2.5 MG/3 ML NEB RESP TX PRN (13:00)
[2019-01-21] MEDS: BENZONATATE 100 MG CAPSULE PO PRN (17:25)
[2019-01-22] MEDS: ALBUTEROL/IPRATROPIUM 3 ML NEB RESP TX SCH ×4 (03:25→20:51)
[2019-01-22 05:23] LABS: Basophils % 0.3 % (0.0-0.8); Eosinophils % 0.3 % (0.00-10.9); Hematocrit 33.1 VOL% (42.0-52.0); Hemoglobin 11.6 GM/DL (14.0-18.0); Immature Granulocytes % 0.7 %; Immature Granulocytes Absolute 0.07 #; Lymphocytes # 0.6 10*3/uL (1.4-4.0); Lymphocytes % 5.9 % (21.2-54.2); Mean Corpuscular Hemoglobin 29 PG (27-34); Mean Corpuscular Volume 83.8 FL (87-102); Mean Platelet Volume 8.6 FL (9.6-12.0); Monocytes # 1.2 10*3/uL (0.11-0.8); Monocytes % 11.3 % (1.7-12.7); Neutrophils # 8.7 10*3/uL (1.4-7.4); Neutrophils % 81.5 % (38.7-73.9); Platelet Count 228 T/CUMM (130-400); Red Blood Count 3.95 MC/CUMM (3.8-5.5); Red Cell Distribution Width 13.1 % (9.3-17.3); White Blood Count 10.6 T/CUMM (4-12)
[2019-01-22 05:54] LABS: Calcium 8.8 MG/DL (8.5-10.1); Osmolality,Calculated 246.6 MOS/KG (273-304); Potassium 4.6 MMOL/L (3.5-5.1)
[2019-01-22] MEDS: DOCUSATE SODIUM 100 MG CAPSULE PO SCH ×2 (09:49→20:31)
[2019-01-22] MEDS: DILTIAZEM CD 120 MG CAPSULE PO SCH (09:49)
[2019-01-22] MEDS: CARVEDILOL 25 MG TABLET PO SCH (09:49)
[2019-01-22] MEDS: OMEGA 3 ACID ETHYL ESTERS 1 GM CAPSULE PO SCH (09:49)
[2019-01-22] MEDS: MULTIVITAMIN (CENTRUM) TABLET PO SCH (09:49)
[2019-01-22] MEDS: SIMVASTATIN 10 MG TABLET PO SCH (09:49)
[2019-01-22] MEDS: PANTOPRAZOLE 40 MG TABLET PO SCH (09:50)
[2019-01-23] MEDS: ALBUTEROL/IPRATROPIUM 3 ML NEB RESP TX SCH ×2 (01:46→07:32)
[2019-01-23 05:02] LABS: Albumin 2.8 G/DL (3.4-5.0); Bilirubin,Total 1.1 MG/DL (0.2-1.0); Calcium 8.8 MG/DL (8.5-10.1); Osmolality,Calculated 257.8 MOS/KG (273-304); Total Protein 6.3 G/DL (6.4-8.3)
[2019-01-23 07:36] VITALS: BP 125/78
[2019-01-23] MEDS: BENZONATATE 100 MG CAPSULE PO PRN (10:13)
[2019-01-23] MEDS: MULTIVITAMIN (CENTRUM) TABLET PO SCH (10:14)
[2019-01-23] MEDS: OMEGA 3 ACID ETHYL ESTERS 1 GM CAPSULE PO SCH (10:14)
[2019-01-23] MEDS: DOCUSATE SODIUM 100 MG CAPSULE PO SCH (10:14)
[2019-01-23] MEDS: DILTIAZEM CD 120 MG CAPSULE PO SCH (10:14)
[2019-01-23] MEDS: SIMVASTATIN 10 MG TABLET PO SCH (10:14)
[2019-01-23] MEDS: CARVEDILOL 25 MG TABLET PO SCH (10:15)
[2019-01-23] MEDS: PANTOPRAZOLE 40 MG TABLET PO SCH (10:15)
== END 2019-01-23 10:33 | disposition home or self-care (01) | DRG 641 ==
LOC: N.ED 10:24 → N.EDINP 10:24 → N.4E 15:52
PROVIDERS: ADMIT Family Medicine; ATTEND Family Medicine